=== PATIENT | female | born 1975 | race Native Hawaiian/Other Pacific Islander ===

== ENCOUNTER 2017-02-26 12:48 | Outpatient (CLI) | payer OTHER ==
[2017-02-26 14:15] LABS: TOTAL T3 0.92 ng/mL (0.87-1.78)
[2017-02-26 14:28] LABS: THYROID STIMULATING HORMONE 2.07 uIU/mL (0.34-5.60)
== END 2017-02-26 12:49 | disposition home or self-care (01) ==
LOC: LAB 12:48
PROVIDERS: ATTEND Specialist
DX: E06.9 Thyroiditis, unspecified (principal)
CPT/HCPCS: 84443; 84480; 84481

== ENCOUNTER 2017-05-11 17:20 | Emergency (ER) | payer OTHER ==
[2017-05-11] MEDS ORDERED: IBUPROFEN 800 MG TABLET PO STA (17:36)
--- NOTE | 2017-05-11 17:40 | ED Physician Documentation ---
PD HPI UPPER EXT INJURY - Stated complaint Stated Complaint: LT ARM PX - Chief complaint Chief Complaint: Ext Problem - History obtained from History obtained from: Patient - History of Present Illness Location: Other (She had a flu shot in the left deltoid a couple of weeks ago. Over the last couple of days she has had pain over the left bicep and tricep which is worse if she moves or lifts her arm. It is not worse with neck rotation and there is no associated weakness or numbness in the arm. There is no chest pain or trouble breathing. 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 - Present Medications Home Medications: Ambulatory Orders Medication Instructions Recorded Confirmed Aspirin 81 mg PO DAILY 05/11/17 05/11/17 - Allergies Allergies/Adverse Reactions: Allergies Allergy/AdvReac Type Severity Reaction Status Date / Time tramadol Allergy Hallucinati Verified 05/11/17 17:40 ons - Social History Does the pt smoke?: No Smoking Status: Never smoker Does the pt drink ETOH?: No Does the pt have substance abuse?: No - Immunizations Immunizations are current?: Yes - POLST Patient has POLST: No PD ED PE NORMAL - Vitals Vital signs reviewed: Yes - General General: Alert and oriented X 3, No acute distress - HEENT HEENT: PERRL, EOMI - Neck Neck: Supple, no meningeal sign, No bony TTP - Cardiac Cardiac: RRR, No murmur - Respiratory Respiratory: No respiratory distress, Clear bilaterally - Extremities Extremities: Other (Tender over the left bicep and tricep and difficulty with abduction of the arm due to pain. There is no skin changes or edema. 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.) - Neuro Neuro: Alert and oriented X 3, Normal speech Results - Vitals Vitals: Vital Signs - 24 hr 05/11/17 17:26 Temperature 36.3 C L Heart Rate 75 Respiratory 16 Rate Blood Pressure 133/71 H O2 Saturation 100 Oxygen O2 Source Room air - EKG (time done) 1729 Rate: Rate (enter#) (75) Rhythm: NSR [place]: Normal Intervals: Normal ME QRS: Normal Ischemia: Normal ST segments Computer interpretation: Agree with computer - Labs Labs: Laboratory Tests 05/11/17 05/11/17 05/11/17 18:02 18:02 18:03 WBC 6.6 RBC 4.93 Hgb 14.1 Hct 41.5 MCV 84.2 MCH 28.5 MCHC 33.9 RDW 14.0 Plt Count 208 MPV 7.7 L Neut # 4.0 Lymph # 1.9 [place] # 0.5 Eos # 0.1 Baso # 0.1 Absolute Nucleated RBC 0.00 Nucleated RBC % 0.0 Sodium 137 Potassium 3.6 Chloride 104 Carbon Dioxide 24 Anion Gap 9.0 BUN 14 Creatinine 0.8 Estimated GFR (MDRD) 78 L Glucose 87 Calcium 9.4 Total Bilirubin 0.4 AST 19 ALT 25 Alkaline Phosphatase 56 Total Protein 7.2 Albumin 4.2 Globulin 3.0 Albumin/Globulin Ratio 1.4 Lipase 34 Urine Color YELLOW Urine Clarity SL. CLOUDY Urine pH 6.0 Ur Specific [place] <=1.005 Urine Protein NEGATIVE Urine Glucose (UA) NEGATIVE Urine Ketones NEGATIVE Urine Occult Blood TRACE-LYSE Urine Nitrite NEGATIVE Urine Bilirubin NEGATIVE Urine Urobilinogen 0.2 (NORMAL) Ur Leukocyte Esterase TRACE H Urine RBC 0-5 Urine WBC 0-3 Ur Squamous Epith Cells MANY Squamous H Urine Bacteria Rare Ur Microscopic Review INDICATED Urine Culture Comments NOT INDICATED Urine HCG, Qual NEGATIVE - Rads (name of study) FLOR sanchez Radiology: Prelim report reviewed (no DVT) PD MEDICAL DECISION MAKING - ED course ED course: 41-year-old woman with pain of the left upper arm which seems muscular on examination, however that Bonnie does have a history of unprovoked DVT so an ultrasound was done without evidence of same. This could be related to a flu shot which she had a couple of weeks ago. She did not get much relief from ibuprofen here and was administered a Vicodin prepack. Departure - Departure Disposition: 01 Home, Self Care Clinical Impression: Pain in extremity Qualifiers: Extremity pain location: upper extremity Laterality: left Qualified Code(s): M79.602 - Pain in left arm Condition: Good Record reviewed to determine appropriate education?: Yes Instructions: ED Acute Pain UKO Comments: Return if worse or if new symptoms develop. Otherwise follow-up with your doctor for recheck. Your blood pressure was elevated today on check into the emergency department. This does not mean that you have hypertension, it is a common phenomenon to come to the emergency department and have elevated blood pressure. I recommend that you see your primary care physician within the week to have it rechecked when you are feeling better.
[2017-05-11] MEDS ORDERED: IBUPROFEN 800 MG TABLET PO ONE (17:58)
[2017-05-11 18:08] LABS: BASOPHILS # (AUTO) 0.1 10^3/uL (0.0-0.1); EOSINOPHILS # (AUTO) 0.1 10^3/uL (0.0-0.7); EOSINOPHILS % (AUTO) 1.5 %; HCT - HEMATOCRIT 41.5 % (37.0-47.0); HGB - HEMOGLOBIN 14.1 g/dL (12.0-16.0); LYMPHOCYTES # (AUTO) 1.9 10^3/uL (1.5-3.5); LYMPHOCYTES % (AUTO) 29.3 %; MEAN CORPUSCULAR HEMOGLOBIN 28.5 pg (27.0-31.0); MEAN CORPUSCULAR HGB CONC 33.9 g/dL (32.0-36.0); MEAN CORPUSCULAR VOLUME 84.2 fL (81.0-99.0); MEAN PLATELET VOLUME 7.7 fL (7.9-10.8); MONOCYTES # (AUTO) 0.5 10^3/uL (0.0-1.0); MONOCYTES % (AUTO) 8.2 %; RED BLOOD COUNT 4.93 10^6/uL (4.20-5.40); UNCORRECTED WHITE BLOOD COUNT 6.6 x10^3/uL; WHITE BLOOD COUNT 6.6 x10^3/uL (4.8-10.8)
[2017-05-11 18:14] LABS: BILIRUBIN,URINE NEGATIVE (NEGATIVE)
[2017-05-11 18:16] LABS: HCG UR QUAL NEGATIVE; UA w/ MICROSCOPIC CHARGE YES
[2017-05-11 18:21] LABS: ALBUMIN/GLOBULIN RATIO 1.4 (1.0-2.2); BILIRUBIN,TOTAL 0.4 mg/dL (0.2-1.0); CALCIUM 9.4 mg/dL (8.5-10.3); CREATININE 0.8 mg/dL (0.4-1.0); POTASSIUM 3.6 mmol/L (3.5-5.0); TOTAL PROTEIN 7.2 g/dL (6.7-8.2)
[2017-05-11 18:28] LABS: UR CULTURE IF IND NOT INDICATED; WBC,URINE 0-3 /HPF (0-5)
[2017-05-11] MEDS ORDERED: HYDROcod/ACET 5/325 Prepack 6 PO STA (19:33)
[2017-05-11] MEDS ORDERED: HYDROcod/ACETAM 5/325 MG TABLET ONE (19:41)
[2017-05-11 19:43] VITALS: BP 130/72
--- NOTE | 2017-05-11 19:51 | Ultrasound Preliminary Report ---
Exam: US DUPLEX EXT VEINS LEFT IMPRESSION: No evidence for deep venous thrombosis. [facility] SITE ID: [id number]
--- NOTE | 2017-05-11 19:53 | Ultrasound Report ---
EXAM: LEFT LOWER EXTREMITY VENOUS ULTRASOUND EXAM DATE: 05/11/2017 07:31 PM. CLINICAL HISTORY: Left arm pain. COMPARISON: None. TECHNIQUE: Real-time sonographic vascular imaging was performed by the braille transcriber through the lower extremity utilizing both color-flow and Doppler spectral analysis. Multiple shipping services sales representative static evie ges were saved for review. FINDINGS: Common Femoral Vein (CFV): Normal. CFV-GSV Junction: Normal. Profunda Femoral Vein (PFV): Normal. Femoral Vein (FV) Prox: Normal. Femoral Vein (FV) Mid: Normal. Femoral Vein (FV) Dist: Normal. Popliteal Vein: Normal. Posterior Tibial Veins: Normal. Peroneal Veins: Normal. Contralateral Side CFV: Normal. Other: None. IMPRESSION: No evidence for deep venous thrombosis. [facility] Referring Provider Line: [phone] SITE ID: [id number]
== END 2017-05-11 19:43 | disposition home or self-care (01) ==
LOC: ED 17:20
DX: M79.622 Pain in left upper arm (principal); R03.0 Elevated blood-pressure reading, without diagnosis of hypertension; Z86.718 Personal history of other venous thrombosis and embolism; Z79.82 Long term (current) use of aspirin
CPT/HCPCS: 36415; 80053; 81001; 81025; 83690; 85025; 93005; 93971; 99283; 99284; A9270; 81003; 87086

== ENCOUNTER 2017-07-25 17:57 | Emergency (ER) | payer OTHER ==
[2017-07-25 18:38] LABS: BASOPHILS # (AUTO) 0.1 10^3/uL (0.0-0.1); BASOPHILS % (AUTO) 0.8 %; EOSINOPHILS # (AUTO) 0.1 10^3/uL (0.0-0.7); EOSINOPHILS % (AUTO) 1.7 %; HGB - HEMOGLOBIN 14.2 g/dL (12.0-16.0); LYMPHOCYTES # (AUTO) 1.7 10^3/uL (1.5-3.5); LYMPHOCYTES % (AUTO) 25.1 %; MEAN CORPUSCULAR HEMOGLOBIN 28.4 pg (27.0-31.0); MEAN CORPUSCULAR HGB CONC 33.3 g/dL (32.0-36.0); MEAN CORPUSCULAR VOLUME 85.2 fL (81.0-99.0); MEAN PLATELET VOLUME 8.2 fL (7.9-10.8); MONOCYTES # (AUTO) 0.5 10^3/uL (0.0-1.0); MONOCYTES % (AUTO) 7.2 %; NEUTROPHILS # (AUTO) 4.5 10^3/uL (1.5-6.6); NEUTROPHILS % (AUTO) 65.2 %; PLT - PLATELET COUNT 198 10^3/uL (130-450); RED BLOOD COUNT 4.98 10^6/uL (4.20-5.40); RED CELL DISTRIBUTION WIDTH 13.5 % (12.0-15.0)
[2017-07-25 18:51] LABS: ALBUMIN 4.7 g/dL (3.2-5.5); ALBUMIN/GLOBULIN RATIO 1.8 (1.0-2.2); BILIRUBIN,TOTAL 0.4 mg/dL (0.2-1.0); TOTAL PROTEIN 7.3 g/dL (6.7-8.2)
[2017-07-25 19:20] LABS: BILIRUBIN,URINE NEGATIVE (NEGATIVE); GLUCOSE, URINE (UA) NEGATIVE (NEGATIVE); KETONES,URINE (UA) NEGATIVE (NEGATIVE); LEUKOCYTE ESTERASE, URINE NEGATIVE (NEGATIVE); NITRITE,URINE NEGATIVE (NEGATIVE); OCCULT BLOOD,URINE TRACE-INTA (NEGATIVE); PROTEIN,URINE NEGATIVE (NEGATIVE); UROBILINOGEN,URINE 0.2 (NORMAL) E.U./dL (NORMAL)
[2017-07-25 20:00] LABS: CLARITY,URINE CLEAR (CLEAR); HCG UR QUAL NEGATIVE
[2017-07-25] MEDS ORDERED: IOPAMIDOL-300 100 ML VIAL ONE (21:04)
[2017-07-25] MEDS ORDERED: IOPAMIDOL-300 100 ML VIAL IVP ONE (21:14)
--- NOTE | 2017-07-25 21:46 | ED Physician Documentation ---
PD HPI ABD PAIN - Stated complaint Stated Complaint: ABD PX - Chief complaint Chief Complaint: Abd Pain - History obtained from History obtained from: Patient, Family - History of Present Illness Timing - onset: Yesterday Timing - details: Gradual onset, Still present Quality: Cramping, Aching, Fullness/distended Location: All over / everywhere, Epigastric Associated symptoms: Nausea. No: Fever, Vomiting, Diarrhea, Constipation Similar symptoms before: Work up / diagnostics, Treatment Recently seen: Not recently seen - Additional information Additional information: Patient is a 41 year old female presenting to the emergency department for abdominal pain and distention. patient states that the symptoms have been going on the last few days. patient reports that she had something like this once in the past and she had upper and lower endoscopies and was found to have a polyp but was never able to follow up. Review of Systems Constitutional: denies: Fever, Chills Eyes: reports: Reviewed and negative Ears: reports: Reviewed and negative Nose: reports: Reviewed and negative Throat: reports: Reviewed and negative Cardiac: denies: Chest pain / pressure, Palpitations Respiratory: denies: Cough, Wheezing GI: reports: Abdominal Pain, Abdominal Swelling, Nausea, Constipation. 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 - Present Medications Home Medications: Ambulatory Orders Medication Instructions Recorded Confirmed Aspirin 81 mg PO DAILY 05/11/17 07/25/17 Omeprazole [PriLOSEC] 20 mg PO DAILY #30 capsule 07/25/17 - Allergies Allergies/Adverse Reactions: Allergies Allergy/AdvReac Type Severity Reaction Status Date / Time tramadol Allergy Hallucinati Verified 07/25/17 18:01 ons - Social History Does the pt smoke?: No Smoking Status: Never smoker Does the pt drink ETOH?: No Does the pt have substance abuse?: No - Immunizations Immunizations are current?: Yes - POLST Patient has POLST: No PD ED PE NORMAL - Vitals Vital signs reviewed: Yes - General General: Alert and oriented X 3, No acute distress - HEENT HEENT: Atraumatic, PERRL - Neck Neck: Supple, no meningeal sign - Cardiac Cardiac: RRR, No murmur - Abdomen Abdomen: Soft - Derm Derm: Normal color, Warm and dry, No rash - Extremities Extremities: No deformity, Normal ROM s pain, No calf tenderness / cord - Neuro Neuro: Alert and oriented X 3, No motor deficit, No sensory deficit, Normal speech - Psych Psych: Normal mood PD ED PE EXPANDED - Abdomen Abdomen: Distended, Tender to palpation, Epigastric, Generalized/diffuse. No: Rebound, Guarding Results - Vitals Vitals: Vital Signs - 24 hr 07/25/17 07/25/17 17:59 21:58 Temperature 36.6 C Heart Rate 81 69 Respiratory 18 16 Rate Blood Pressure 144/93 H 126/84 H O2 Saturation 100 99 Oxygen O2 Source Room air - Labs Labs: Laboratory Tests 07/25/17 07/25/17 07/25/17 18:30 18:30 19:13 WBC 7.0 RBC 4.98 Hgb 14.2 Hct 42.5 MCV 85.2 MCH 28.4 MCHC 33.3 RDW 13.5 Plt Count 198 MPV 8.2 Neut # 4.5 Lymph # 1.7 [place] # 0.5 Eos # 0.1 Baso # 0.1 Absolute Nucleated RBC 0.00 Nucleated RBC % 0.0 Sodium 136 Potassium 3.8 Chloride 105 Carbon Dioxide 26 Anion Gap 5.0 L BUN 14 Creatinine 1.0 Estimated GFR (MDRD) 61 L Glucose 96 Calcium 9.0 Total Bilirubin 0.4 AST 22 ALT 34 Alkaline Phosphatase 50 Total Protein 7.3 Albumin 4.7 Globulin 2.6 Albumin/Globulin Ratio 1.8 Lipase 39 Urine Color YELLOW Urine Clarity CLEAR Urine pH 6.0 Ur Specific [place] <=1.005 Urine Protein NEGATIVE Urine Glucose (UA) NEGATIVE Urine Ketones NEGATIVE Urine Occult Blood TRACE-INTA Urine Nitrite NEGATIVE Urine Bilirubin NEGATIVE Urine Urobilinogen 0.2 (NORMAL) Ur Leukocyte Esterase NEGATIVE Ur Microscopic Review NOT INDICATED Urine Culture Comments NOT INDICATED Urine HCG, Qual NEGATIVE - Rads (name of study) ct abd pelvis Radiology: Final report received (diverticulosis without diverticulitis) PD MEDICAL DECISION MAKING - ED course Complexity details: reviewed old records, reviewed results, re-evaluated patient , considered differential, d/w patient, d/w family ED course: Patient was seen and examined at bedside. Labs were drawn and within normal limits. Due to the distention and patient's history imaging was ordered. When patient returned from imaging the results were reviewed. Patient had no acute abnormalities on imaging. patient was treated with omeprazole and maalox. Patient required no further work up and was stable for discharge with outpatient follow up. Departure - Departure Disposition: Home, Self Care Clinical Impression: Gastritis Condition: Good Instructions: ED Gastritis Follow-Up: Adalberto Blevins MD [Primary Care Provider] - Within 1 week Prescriptions: Omeprazole [PriLOSEC] 20 mg PO DAILY #30 capsule Comments: Your diagnostics today were within normal limits. You will be started on omeprazole daily and you can take maalox as needed for breakthrough pain. You should follow up with your doctor this week for re-evaluation if your symptoms don't improve. You may return to the emergency department at any time for new, worsening or uncontrollable symptoms.
--- NOTE | 2017-07-25 21:49 | CT Preliminary Report ---
Exam: CT ABDOMEN/PELVIS W/ IMPRESSION: 1. Mildly enlarged fatty liver. No mass. 2. Diverticulosis without inflammation. No obstruction. Normal appendix. [facility] SITE ID: [id number]
[2017-07-25 21:58] VITALS: BP 126/84
--- NOTE | 2017-07-25 22:03 | CT Report ---
EXAM: CT ABDOMEN AND PELVIS EXAM DATE: 07/25/2017 09:19 PM. CLINICAL HISTORY: Abdominal pain and distention. COMPARISONS: 01/04/2016. TECHNIQUE: Routine helical CT imaging was performed through the abdomen and pelvis. IV contrast: Isov ue 300 100 mL. Enteric contrast: No. Reconstructions: Coronal and sagittal. In accordance with CT protocol optimization, one or more of the following dose reduction techniques w ere utilized for this exam: automated exposure control, adjustment of mA and/or KV based on patient s ize, or use of iterative reconstructive technique. FINDINGS: Lung Bases: Unremarkable. Liver: Fatty liver without mass. Mild liver enlargement. Gallbladder/Bile Ducts: Unremarkable. Spleen: Normal. Pancreas: Normal. Adrenal Glands: Normal. Kidneys: Normal. No masses or hydronephrosis. Peritoneal Cavity/Bowel: Small amount of pelvic free fluid noted. No free air or adenopathy. No jose alberto s or acute inflammatory process. The appendix is well visualized and normal. There are multiple diver ticula seen which most severely affect the sigmoid colon. No wall thickening or adjacent inflammatio n seen. No obstruction noted. Pelvic Organs: Tubal ligation clips are noted. The uterus, bladder and adnexa are otherwise unremarka ble. Small amount of free fluid in the pelvis noted. Vasculature: No aneurysms or other significant abnormality. Bones: No significant abnormality. Other: Small fat-containing umbilical hernia noted. IMPRESSION: 1. Mildly enlarged fatty liver. No mass. 2. Diverticulosis without inflammation. No obstruction. Normal appendix. [facility] Referring Provider Line: [phone] SITE ID: [id number]
[2017-07-25] MEDS ORDERED: MAG HYDROX/AL HYDROX/SIMETH 30 ML UDC PO STA (22:29)
== END 2017-07-25 22:46 | disposition home or self-care (01) ==
LOC: ED 17:57
DX: K29.70 Gastritis, unspecified, without bleeding (principal); Z86.718 Personal history of other venous thrombosis and embolism; Z79.82 Long term (current) use of aspirin
CPT/HCPCS: 36415; 74177; 80053; 81003; 81025; 83690; 85025; 99283; A9270; Q9967; 81001; 87086

== ENCOUNTER 2017-10-27 15:59 | Emergency (ER) | payer OTHER ==
--- NOTE | 2017-10-27 16:35 | ED Physician Documentation ---
PD HPI HEENT - Stated complaint Stated Complaint: OFF BALANCE - Chief complaint Chief Complaint: Neuro - History obtained from History obtained from: Patient - History of Present Illness Timing - onset: How many days ago (3) Timing - duration: Days (3) Timing - details: Gradual onset, Still present Location: Other (feeling some lightheaded or off balance feeling with standing up or with head movement.) Worsens: Position (turning head) Associated symptoms: No: Fever, Congestion, Swollen nodes, Facial swelling Similar symptoms before: Diagnosis (has had vertiog with spinning in the past. This is not that bad. Has had lightheadedness with anemia in the past as well.) Recently seen: Not recently seen Review of Systems Constitutional: denies: Fever, Chills, Myalgias Ears: reports: Loss of hearing. 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 - Present Medications Home Medications: Ambulatory Orders Medication Instructions Recorded Confirmed Aspirin 81 mg PO DAILY 05/11/17 10/27/17 Omeprazole [PriLOSEC] 20 mg PO DAILY #30 capsule 07/25/17 10/27/17 Butalb/Acetaminophen/Caffeine 10/27/17 [Fioricet 50-300-40 mg Capsule] Dexamethasone [Decadron] 4 mg PO DAILY #5 tablet 10/27/17 Meclizine [Antivert] 10/27/17 Sulfamethox/Trimeth 800/160 1 each PO BID #14 tablet 10/27/17 [Bactrim Ds 800/160] - Allergies Allergies/Adverse Reactions: Allergies Allergy/AdvReac Type Severity Reaction Status Date / Time tramadol Allergy Hallucinati Verified 07/25/17 18:01 ons - Social History Does the pt smoke?: No Smoking Status: Never smoker Does the pt drink ETOH?: No Does the pt have substance abuse?: No - Immunizations Immunizations are current?: Yes - POLST Patient has POLST: No PD ED PE NORMAL - Vitals Vital signs reviewed: Yes - General General: Alert and oriented X 3, No acute distress, Well developed/nourished - HEENT HEENT: PERRL, EOMI, Ears normal, Pharynx benign - Neck Neck: Supple, no meningeal sign, No adenopathy - Cardiac Cardiac: RRR, No murmur - Respiratory Respiratory: Clear bilaterally - Back Back: No CVA TTP - Derm Derm: Normal color, Warm and dry - Extremities Extremities: No tenderness to palpate, Normal ROM s pain, No edema, No calf tenderness / cord - Neuro Neuro: Alert and oriented X 3, classification officer 2-12 intact, No motor deficit, No sensory deficit, Normal speech, Other Eye Opening: Spontaneous Motor: Obeys Commands Verbal: Oriented GCS Score: 15 - Psych Psych: Normal mood, Normal affect Results - Vitals Vitals: Vital Signs - 24 hr 10/27/17 10/27/17 16:02 19:07 Temperature 36.0 C L 36.2 C L Heart Rate 80 72 Respiratory 16 16 Rate Blood Pressure 135/85 H 135/94 H O2 Saturation 100 99 Oxygen O2 Source Room air - Labs Labs: Laboratory Tests 10/27/17 10/27/17 10/27/17 16:05 17:11 17:11 WBC 6.1 RBC 4.98 Hgb 14.3 Hct 42.6 MCV 85.4 MCH 28.7 MCHC 33.6 RDW 13.4 Plt Count 165 MPV 8.2 Neut # 4.1 Lymph # 1.4 L [place] # 0.5 Eos # 0.1 Baso # 0.1 Absolute Nucleated RBC 0.00 Nucleated RBC % 0.0 Sodium 138 Potassium 3.6 Chloride 105 Carbon Dioxide 27 Anion Gap 6.0 BUN 11 Creatinine 0.8 Estimated GFR (MDRD) 78 L Glucose 90 Calcium 9.2 Magnesium 2.0 Total Bilirubin 0.5 AST 21 ALT 31 Alkaline Phosphatase 56 Total Protein 7.0 Albumin 4.3 Globulin 2.7 Albumin/Globulin Ratio 1.6 Lipase 27 TSH Urine Color RED/BLOODY Urine Clarity CLOUDY Urine pH 7.5 Ur Specific [place] 1.010 Urine Protein 100 H Urine Glucose (UA) NEGATIVE Urine Ketones NEGATIVE Urine Occult Blood LARGE H Urine Nitrite NEGATIVE Urine Bilirubin NEGATIVE Urine Urobilinogen 0.2 (NORMAL) Ur Leukocyte Esterase TRACE H Urine RBC TNTC H Urine WBC 11-25 H Ur Squamous Epith Cells RARE Squamous Urine Bacteria Few Ur Microscopic Review INDICATED Urine Culture Comments INDICATED Urine HCG, Qual NEGATIVE 10/27/17 17:11 WBC RBC Hgb Hct MCV MCH MCHC RDW Plt Count MPV Neut # Lymph # [place] # Eos # Baso # Absolute Nucleated RBC Nucleated RBC % Sodium Potassium Chloride Carbon Dioxide Anion Gap BUN Creatinine Estimated GFR (MDRD) Glucose Calcium Magnesium Total Bilirubin AST ALT Alkaline Phosphatase Total Protein Albumin Globulin Albumin/Globulin Ratio Lipase TSH 1.99 Urine Color Urine Clarity Urine pH Ur Specific [place] Urine Protein Urine Glucose (UA) Urine Ketones Urine Occult Blood Urine Nitrite Urine Bilirubin Urine Urobilinogen Ur Leukocyte Esterase Urine RBC Urine WBC Ur Squamous Epith Cells Urine Bacteria Ur Microscopic Review Urine Culture Comments Urine HCG, Qual PD MEDICAL DECISION MAKING - ED course Complexity details: considered differential (describes lightheaded but also some component of vertiog without actually spinning. No neuro deficits. I do not think it is central. ), d/w patient Departure - Departure Disposition: 01 Home, Self Care Clinical Impression: Light-headed feeling UTI (urinary tract infection) Qualifiers: Urinary tract infection type: acute cystitis Hematuria presence: with hematuria Qualified Code(s): N30.01 - Acute cystitis with hematuria Condition: Stable Record reviewed to determine appropriate education?: Yes Instructions: ED UTI Cystitis Female Follow-Up: Adalberto Blevins MD [Primary Care Provider] - Prescriptions: Dexamethasone [Decadron] 4 mg PO DAILY #5 tablet Sulfamethox/Trimeth 800/160 [Bactrim Ds 800/160] 1 each PO BID #14 tablet Comments: There is suggestion of a bladder infection on your urine test. Bactrim antibiotic for that. Your blood tests are looking okay. You might be feeling lightheaded related to a mild infection. Your symptoms may relate to a milder version of vertigo without the true spinning feeling. For that continue your meclizine 2-3 times a day and also add Decadron steroid anti-inflammatory for presumed inflammation of the inner ear. Recheck if not improved over the next few days. Forms: Activity restrictions Discharge Date/Time: 10/27/17 19:11
[2017-10-27 16:42] LABS: BILIRUBIN,URINE NEGATIVE (NEGATIVE); GLUCOSE, URINE (UA) NEGATIVE (NEGATIVE); KETONES,URINE (UA) NEGATIVE (NEGATIVE); LEUKOCYTE ESTERASE, URINE TRACE (NEGATIVE); NITRITE,URINE NEGATIVE (NEGATIVE); OCCULT BLOOD,URINE LARGE (NEGATIVE); PH,URINE 7.5 PH (5.0-7.5); PROTEIN,URINE 100 mg/dL (NEGATIVE); UROBILINOGEN,URINE 0.2 (NORMAL) E.U./dL (NORMAL)
[2017-10-27 16:46] LABS: CLARITY,URINE CLOUDY (CLEAR); HCG UR QUAL NEGATIVE
[2017-10-27 16:47] LABS: BACTERIA,URINE Few /HPF (None Seen); RBC,URINE TNTC /HPF (0-5); SQUAMOUS EPITHELIAL CELL,UR RARE Squamous (<= Few)
[2017-10-27 17:17] LABS: BASOPHILS # (AUTO) 0.1 10^3/uL (0.0-0.1); EOSINOPHILS # (AUTO) 0.1 10^3/uL (0.0-0.7); EOSINOPHILS % (AUTO) 1.2 %; HGB - HEMOGLOBIN 14.3 g/dL (12.0-16.0); LYMPHOCYTES # (AUTO) 1.4 10^3/uL (1.5-3.5); LYMPHOCYTES % (AUTO) 22.9 %; MEAN CORPUSCULAR HEMOGLOBIN 28.7 pg (27.0-31.0); MEAN CORPUSCULAR HGB CONC 33.6 g/dL (32.0-36.0); MEAN CORPUSCULAR VOLUME 85.4 fL (81.0-99.0); MEAN PLATELET VOLUME 8.2 fL (7.9-10.8); MONOCYTES # (AUTO) 0.5 10^3/uL (0.0-1.0); NEUTROPHILS # (AUTO) 4.1 10^3/uL (1.5-6.6); NEUTROPHILS % (AUTO) 66.9 %; PLT - PLATELET COUNT 165 10^3/uL (130-450); RED BLOOD COUNT 4.98 10^6/uL (4.20-5.40); RED CELL DISTRIBUTION WIDTH 13.4 % (12.0-15.0); WHITE BLOOD COUNT 6.1 x10^3/uL (4.8-10.8)
[2017-10-27 17:30] LABS: ALBUMIN 4.3 g/dL (3.2-5.5); ALBUMIN/GLOBULIN RATIO 1.6 (1.0-2.2); BILIRUBIN,TOTAL 0.5 mg/dL (0.2-1.0); CALCIUM 9.2 mg/dL (8.5-10.3); CREATININE 0.8 mg/dL (0.4-1.0)
[2017-10-27] MEDS ORDERED: SULFAMETH/TRIMETH DS 800/160 MG TABLET PO STA (18:20)
[2017-10-27] MEDS ORDERED: DEXAMETHASONE 10 MG/ML VIAL PO STA (18:20)
[2017-10-27 19:08] VITALS: BP 135/94
== END 2017-10-27 19:11 | disposition home or self-care (01) ==
LOC: ED 15:59
DX: R42 Dizziness and giddiness (principal); N30.01 Acute cystitis with hematuria; Z79.82 Long term (current) use of aspirin
CPT/HCPCS: 36415; 80053; 81001; 81025; 83690; 83735; 84443; 85025; 87086; 99283; A9270; 81003

== ENCOUNTER 2017-11-04 07:17 | Emergency (ER) | payer OTHER ==
[2017-11-04 07:31] VITALS: BP 124/77
[2017-11-04] MEDS ORDERED: MECLIZINE 12.5 MG TABLET PO STA (07:53)
--- NOTE | 2017-11-04 07:56 | ED Physician Documentation ---
History of Present Illness - Stated complaint Stated Complaint: DIZZY - Chief complaint Chief Complaint: General - History obtained from History obtained from: Patient - History of Present Illness Timing: How many weeks ago (2) Pain level max: 0 Pain level now: 0 Improved by: Remaining still Worsened by: Movement - Additonal information Additional information: Patient is a 41-year-old female who presents to the emergency department with feeling like the room is spinning for the past 2 weeks. This is intermittent and was worse this morning. She had been seen here 2 weeks ago and started on dexamethasone and Bactrim. She states she has not improved. She was taking meclizine, but it in 2016 so she is not sure if it is working correctly or not. She has had BPPV in the past. No fevers. No ear pain. No coughing. No vomiting. No dysuria. No possibility of . No focal weakness or numbness. No aphasia or dysarthria Review of Systems Ten Systems: 10 systems reviewed and negative Constitutional: denies: Fever, Chills Ears: denies: Ear pain Nose: denies: Rhinorrhea / runny nose, Congestion Throat: denies: Sore throat Cardiac: denies: Chest pain / pressure Respiratory: denies: Cough GI: denies: Nausea, Vomiting, Diarrhea Skin: denies: Rash Musculoskeletal: denies: Neck pain, Back pain Neurologic: denies: Focal weakness, Numbness, Confused, Altered mental status, Headache PD PAST MEDICAL HISTORY - Past Medical History Cardiovascular: Deep vein thrombosis Respiratory: Pneumonia GI: None - Past Surgical History 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 - Present Medications Home Medications: Ambulatory Orders Medication Instructions Recorded Confirmed Aspirin 81 mg PO DAILY 05/11/17 10/27/17 Omeprazole [PriLOSEC] 20 mg PO DAILY #30 capsule 07/25/17 10/27/17 Butalb/Acetaminophen/Caffeine 10/27/17 [Fioricet 50-300-40 mg Capsule] Meclizine [Antivert] 10/27/17 Sulfamethox/Trimeth 800/160 1 each PO BID #14 tablet 10/27/17 [Bactrim Ds 800/160] Meclizine [Antivert] 25 mg PO Q6H PRN #30 tablet 11/04/17 - Allergies Allergies/Adverse Reactions: Allergies Allergy/AdvReac Type Severity Reaction Status Date / Time tramadol Allergy Hallucinati Verified 11/04/17 07:31 ons - Social History Does the pt smoke?: No Smoking Status: Never smoker Does the pt drink ETOH?: No Does the pt have substance abuse?: No - Immunizations Immunizations are current?: Yes - POLST Patient has POLST: No PD ED PE NORMAL - Vitals Vital signs reviewed: Yes - General General: Alert and oriented X 3, No acute distress, Well developed/nourished - HEENT HEENT: Atraumatic, PERRL, EOMI, Moist mucous membranes, Pharynx benign, Other ( Mild erythema to the superior portion of the left tympanic membrane. 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 Horizontal nystagmus present.) - Psych Psych: Normal mood, Normal affect Results - Vitals Vitals: Vital Signs - 24 hr 11/04/17 07:26 Temperature 36.5 C Heart Rate 85 Respiratory 16 Rate Blood Pressure 124/77 O2 Saturation 100 Oxygen O2 Source Room air PD MEDICAL DECISION MAKING - ED course Complexity details: reviewed old records, considered differential, d/w patient ED course: Patient is a 41-year-old female who presents to the emergency department what appears to be benign paroxysmal positional vertigo. She was put through the half somersault maneuver 2 in the emergency department and feels better. Also given meclizine. Will prescribe meclizine for home and have her continue the reposition all movements at home. No evidence of stroke, mass, ICH. Patient counseled regarding signs and symptoms for which I believe and urgent re- evaluation would be necessary. Patient with good understanding of and agreement to plan and is comfortable going home at this time This document was made in part using voice recognition software. While efforts are made to proofread this document, sound alike and grammatical errors may occur. Departure - Departure Disposition: 01 Home, Self Care Clinical Impression: BPPV (benign paroxysmal positional vertigo) Qualifiers: Laterality: right Qualified Code(s): H81.11 - Benign paroxysmal vertigo, right ear Condition: Good Instructions: Vertigo Paroxysmal Positional Follow-Up: Adalberto Blevins MD [Primary Care Provider] - Within 1 week Prescriptions: Meclizine [Antivert] 25 mg PO Q6H PRN #30 tablet PRN Reason: Vertigo Comments: Take the meclizine as directed. You can also try the Ari maneuver and half somersault maneuvers at home for your vertigo. There are [employer] videos on how to perform these. Your right ear is the one affected. Return if you worsen. Discharge Date/Time: 11/04/17 08:30
== END 2017-11-04 08:30 | disposition home or self-care (01) ==
LOC: ED 07:17
DX: H81.11 Benign paroxysmal vertigo, right ear (principal); Z86.718 Personal history of other venous thrombosis and embolism; Z79.82 Long term (current) use of aspirin
CPT/HCPCS: 99283; A9270

== ENCOUNTER 2018-02-07 08:00 | Outpatient (CLI) | payer OTHER ==
[2018-02-07 15:42] LABS: BILIRUBIN,URINE NEGATIVE (NEGATIVE); GLUCOSE, URINE (UA) NEGATIVE (NEGATIVE); KETONES,URINE (UA) 15 mg/dL (NEGATIVE); LEUKOCYTE ESTERASE, URINE NEGATIVE (NEGATIVE); NITRITE,URINE NEGATIVE (NEGATIVE); OCCULT BLOOD,URINE TRACE-INTA (NEGATIVE); PROTEIN,URINE NEGATIVE (NEGATIVE); UROBILINOGEN,URINE 0.2 (NORMAL) E.U./dL (NORMAL)
[2018-02-07 15:44] LABS: CLARITY,URINE CLEAR (CLEAR)
[2018-02-07 16:02] LABS: BACTERIA,URINE Many /HPF (None Seen); SQUAMOUS EPITHELIAL CELL,UR MOD Squamous (<= Few); WBC CLUMPS,URINE PRESENT
== END 2018-02-07 08:01 | disposition home or self-care (01) ==
LOC: LAB.R 08:00
PROVIDERS: ATTEND Obstetrics & Gynecology
DX: N39.3 Stress incontinence (female) (male) (principal)
CPT/HCPCS: 81001; 87086

== ENCOUNTER 2018-02-10 08:00 | Outpatient (CLI) | payer OTHER ==
[2018-02-10 12:27] LABS: BASOPHILS % (AUTO) 0.6 %; EOSINOPHILS # (AUTO) 0.1 10^3/uL (0.0-0.7); EOSINOPHILS % (AUTO) 1.1 %; HGB - HEMOGLOBIN 13.5 g/dL (12.0-16.0); LYMPHOCYTES # (AUTO) 0.9 10^3/uL (1.5-3.5); LYMPHOCYTES % (AUTO) 18.5 %; MEAN CORPUSCULAR HEMOGLOBIN 29.7 pg (27.0-31.0); MEAN CORPUSCULAR HGB CONC 34.8 g/dL (32.0-36.0); MEAN CORPUSCULAR VOLUME 85.3 fL (81.0-99.0); MEAN PLATELET VOLUME 9.1 fL (7.9-10.8); MONOCYTES # (AUTO) 0.3 10^3/uL (0.0-1.0); MONOCYTES % (AUTO) 6.2 %; NEUTROPHILS # (AUTO) 3.5 10^3/uL (1.5-6.6); NEUTROPHILS % (AUTO) 73.6 %; PLT - PLATELET COUNT 195 10^3/uL (130-450); RED BLOOD COUNT 4.53 10^6/uL (4.20-5.40); RED CELL DISTRIBUTION WIDTH 13.4 % (12.0-15.0); WHITE BLOOD COUNT 4.7 x10^3/uL (4.8-10.8)
[2018-02-10 12:36] LABS: CHOLESTEROL 209 mg/dL; HDL CHOLESTEROL 35 mg/dL; LDL CHOLESTEROL,CALCULATED 160 mg/dL; LDL/HDL RATIO 4.6 (<4.4); VLDL CHOLESTEROL 14 mg/dL
[2018-02-10 12:53] LABS: THYROID STIMULATING HORMONE 2.08 uIU/mL (0.34-5.60)
[2018-02-10 12:55] LABS: FREE T4 (FREE THYROXINE) 0.93 ng/dL (0.58-1.64)
[2018-02-10 13:20] LABS: FOLLICLE STIMULATING HORMONE 16.63 mIU/mL
== END 2018-02-10 08:01 | disposition home or self-care (01) ==
LOC: LAB.N 08:00
PROVIDERS: ATTEND Obstetrics & Gynecology
DX: N92.5 Other specified irregular menstruation (principal); Z13.0 Encounter for screening for diseases of the blood and blood-forming organs and certain disorders involving the immune mechanism; Z13.220 Encounter for screening for lipoid disorders
CPT/HCPCS: 36415; 80061; 83001; 83721; 84439; 84443; 84481; 85025

== ENCOUNTER 2018-02-17 09:00 | Outpatient (CLI) | payer OTHER ==
--- NOTE | 2018-02-17 11:13 | Ultrasound Report ---
Reason: IRREGULAR MENSTRUATION Procedure Date: 02/17/2018 Accession Number: [id number] / [id number] Procedure: US - Pelvic w/Transvaginal CPT Code: FULL RESULT: EXAM: PELVIC ULTRASOUND EXAM DATE: 02/17/2018 10:29 AM. CLINICAL HISTORY: Irregular menstruation. COMPARISON: None. TECHNIQUE: Realtime transabdominal pelvic scan performed to identify the uterus and adnexa and as an overview of other pelvic structures, followed by transvaginal scan to provide greater detail of the uterus and adnexa, with static image documentation. FINDINGS: Uterus: 12.7 x 3.7 x 7.8 cm, volume 192 cc. Anteverted position. Normal overall size and echotexture. Masses: None. Endometrium: 9 mm. Normal. Cervix: Nabothian cysts are noted. Right Ovary: 2.6 x 2.5 x 1.8 cm, volume 6 cc. Normal echotexture and blood flow. Left Ovary: 4.8 x 3.9 x 3.9 cm, volume 38 cc. Hemorrhagic dominant follicle measuring up to 2.7 cm is noted. Free Fluid: None. Other: None. IMPRESSION: Hemorrhagic dominant follicle, otherwise normal study. RADIA
== END 2018-02-17 09:01 | disposition home or self-care (01) ==
LOC: DI 09:00
PROVIDERS: ATTEND Obstetrics & Gynecology
DX: N83.02 Follicular cyst of left ovary (principal)
CPT/HCPCS: 76830; 76856

== ENCOUNTER 2018-04-07 12:41 | Outpatient (CLI) | payer OTHER ==
[2018-04-07 12:58] LABS: BASOPHILS % (AUTO) 0.6 %; EOSINOPHILS # (AUTO) 0.1 10^3/uL (0.0-0.7); EOSINOPHILS % (AUTO) 0.9 %; HGB - HEMOGLOBIN 13.6 g/dL (12.0-16.0); LYMPHOCYTES # (AUTO) 1.6 10^3/uL (1.5-3.5); LYMPHOCYTES % (AUTO) 20.4 %; MEAN CORPUSCULAR HEMOGLOBIN 29.4 pg (27.0-31.0); MEAN CORPUSCULAR HGB CONC 34.4 g/dL (32.0-36.0); MEAN CORPUSCULAR VOLUME 85.5 fL (81.0-99.0); MEAN PLATELET VOLUME 8.3 fL (7.9-10.8); MONOCYTES # (AUTO) 0.5 10^3/uL (0.0-1.0); MONOCYTES % (AUTO) 5.9 %; NEUTROPHILS # (AUTO) 5.7 10^3/uL (1.5-6.6); NEUTROPHILS % (AUTO) 72.2 %; PLT - PLATELET COUNT 225 10^3/uL (130-450); RED BLOOD COUNT 4.62 10^6/uL (4.20-5.40); RED CELL DISTRIBUTION WIDTH 13.8 % (12.0-15.0); WHITE BLOOD COUNT 7.9 x10^3/uL (4.8-10.8)
== END 2018-04-07 12:42 | disposition home or self-care (01) ==
LOC: LAB 12:41
PROVIDERS: ATTEND Obstetrics & Gynecology
DX: N92.4 Excessive bleeding in the premenopausal period (principal)
CPT/HCPCS: 36415; 85025

== ENCOUNTER 2018-04-16 08:20 | Inpatient (IN) | payer OTHER ==
[2018-04-16 09:12] LABS: BILIRUBIN,URINE NEGATIVE (NEGATIVE); GLUCOSE, URINE (UA) NEGATIVE (NEGATIVE); OCCULT BLOOD,URINE LARGE (NEGATIVE)
[2018-04-16 09:17] LABS: CLARITY,URINE BLOODY (CLEAR)
[2018-04-16 09:18] LABS: RBC,URINE TNTC /HPF (0-5); SQUAMOUS EPITHELIAL CELL,UR MOD Squamous (<= Few)
[2018-04-16 09:19] LABS: BACTERIA,URINE Few /HPF (None Seen)
[2018-04-16 09:38] LABS: BASOPHILS % (AUTO) 0.9 %; EOSINOPHILS % (AUTO) 1.4 %; HGB - HEMOGLOBIN 9.8 g/dL (12.0-16.0); LYMPHOCYTES # (AUTO) 0.9 10^3/uL (1.5-3.5); LYMPHOCYTES % (AUTO) 24.6 %; MEAN CORPUSCULAR HEMOGLOBIN 29.7 pg (27.0-31.0); MEAN CORPUSCULAR HGB CONC 34.3 g/dL (32.0-36.0); MEAN CORPUSCULAR VOLUME 86.5 fL (81.0-99.0); MEAN PLATELET VOLUME 7.8 fL (7.9-10.8); MONOCYTES # (AUTO) 0.2 10^3/uL (0.0-1.0); MONOCYTES % (AUTO) 5.7 %; NEUTROPHILS # (AUTO) 2.4 10^3/uL (1.5-6.6); NEUTROPHILS % (AUTO) 67.4 %; PLT - PLATELET COUNT 188 10^3/uL (130-450); RED BLOOD COUNT 3.28 10^6/uL (4.20-5.40); RED CELL DISTRIBUTION WIDTH 14.2 % (12.0-15.0); WHITE BLOOD COUNT 3.5 x10^3/uL (4.8-10.8)
[2018-04-16 09:49] LABS: ALBUMIN 3.7 g/dL (3.2-5.5); ALBUMIN/GLOBULIN RATIO 1.5 (1.0-2.2); BILIRUBIN,TOTAL 0.7 mg/dL (0.2-1.0); CALCIUM 8.5 mg/dL (8.5-10.3); CREATININE 0.5 mg/dL (0.4-1.0); TOTAL PROTEIN 6.1 g/dL (6.7-8.2)
--- NOTE | 2018-04-16 10:01 | ED Physician Documentation ---
PD HPI HEADACHE - Stated complaint Stated Complaint: KRAMER - Chief complaint Chief Complaint: Neuro - History obtained from History obtained from: Patient, Family - History of Present Illness Timing - onset: How many days ago (2) Timing - onset during: Rest Timing - duration: Days (2) Timing - details: Gradual onset, Still present Location: Global Quality: Throbbing Associated symptoms: No: Fever, Stiff neck, Nausea, Vomiting, Weakness, Numbness, Syncope, Seizure, Eye pain, Vision changes Improved by: Rest Contributing factors: No: Anticoagulated Similar symptoms before: Other Recently seen: Clinic - Additional information Additional information: 42-year-old female with a history of dysfunctional uterine bleeding and a diagnosis of adenomyosis is preparing to have a hysterectomy done next month. She is now developed a headache that is throbbing in nature and she is concerned about the blood loss that she has had. She feels that she may be anemic. She has had migraine headaches previously and she states this is not similar to that. She denies any photophobia or nausea or vomiting. Review of Systems Constitutional: reports: Fatigue. denies: Fever, Chills Eyes: denies: Decreased vision Ears: denies: Ear pain Nose: denies: Rhinorrhea / runny nose, Congestion Throat: denies: Sore throat Cardiac: denies: Chest pain / pressure Respiratory: denies: Cough GI: reports: Abdominal Pain, Nausea : reports: Vaginal bleeding. denies: Dysuria, Frequency Skin: denies: Rash Musculoskeletal: denies: Neck pain, Back pain, Extremity pain Neurologic: reports: Headache. 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 - Present Medications Home Medications: Ambulatory Orders Medication Instructions Recorded Confirmed Aspirin 81 mg PO DAILY 05/11/17 10/27/17 - Allergies Allergies/Adverse Reactions: Allergies Allergy/AdvReac Type Severity Reaction Status Date / Time tramadol Allergy Hallucinati Verified 11/04/17 07:31 ons - Social History Does the pt smoke?: No Smoking Status: Never smoker Does the pt drink ETOH?: No Does the pt have substance abuse?: No - Immunizations Immunizations are current?: Yes - POLST Patient has POLST: No PD ED PE NORMAL - Vitals Vital signs reviewed: Yes (normal ) - General General: Alert and oriented X 3, No acute distress, Well developed/nourished - HEENT HEENT: Atraumatic, PERRL, EOMI, Other (dry mucous membranes ) - Neck Neck: Supple, no meningeal sign, No bony TTP - Cardiac Cardiac: RRR, No murmur - Respiratory Respiratory: No respiratory distress, Clear bilaterally - Abdomen Abdomen: Soft, Non tender - Back Back: No CVA TTP, No spinal TTP - Derm Derm: Normal color, Warm and dry, No rash - Extremities Extremities: No deformity, No edema - Neuro Neuro: Alert and oriented X 3, 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, No motor deficit, No sensory deficit, Normal speech Eye Opening: Spontaneous Motor: Obeys Commands Verbal: Oriented GCS Score: 15 - Psych Psych: Normal mood, Normal affect Results - Vitals Vitals: Vital Signs - 24 hr 04/16/18 04/16/18 08:25 10:11 Temperature 36.8 C Heart Rate 87 83 Respiratory 14 12 Rate Blood Pressure 122/87 H 124/84 H O2 Saturation 100 99 Oxygen O2 Source Room air - Labs Labs: Laboratory Tests 04/16/18 04/16/18 04/16/18 08:45 09:30 09:30 WBC 3.5 L RBC 3.28 L Hgb 9.8 L Hct 28.4 L MCV 86.5 MCH 29.7 MCHC 34.3 RDW 14.2 Plt Count 188 MPV 7.8 L Neut # (Auto) 2.4 Lymph # (Auto) 0.9 L [place] # (Auto) 0.2 Eos # (Auto) 0.0 Baso # (Auto) 0.0 Absolute Nucleated RBC 0.00 Nucleated RBC % 0.0 Sodium 139 Potassium 3.7 Chloride 110 Carbon Dioxide 23 Anion Gap 6.0 BUN 13 Creatinine 0.5 Estimated GFR (MDRD) 134 Glucose 89 Calcium 8.5 Total Bilirubin 0.7 AST 21 ALT 25 Alkaline Phosphatase 37 L Troponin I Total Protein 6.1 L Albumin 3.7 Globulin 2.4 Albumin/Globulin Ratio 1.5 Lipase 33 Urine Color RED/BLOODY Urine Clarity BLOODY Urine pH Ur Specific [place] Urine Protein Urine Glucose (UA) NEGATIVE Urine Ketones Urine Occult Blood LARGE H Urine Nitrite Urine Bilirubin NEGATIVE Urine Urobilinogen Ur Leukocyte Esterase Urine RBC TNTC H Urine WBC 6-10 H Ur Squamous Epith Cells MOD Squamous H Urine Bacteria Few Ur Microscopic Review INDICATED Urine Culture Comments NOT INDICATED 04/16/18 04/16/18 09:30 10:22 WBC RBC Hgb Hct MCV MCH MCHC RDW Plt Count MPV Neut # (Auto) Lymph # (Auto) [place] # (Auto) Eos # (Auto) Baso # (Auto) Absolute Nucleated RBC Nucleated RBC % Sodium Potassium Chloride Carbon Dioxide Anion Gap BUN Creatinine Estimated GFR (MDRD) Glucose Calcium Total Bilirubin AST ALT Alkaline Phosphatase Troponin I < 0.04 Total Protein Albumin Globulin Albumin/Globulin Ratio Lipase Urine Color YELLOW Urine Clarity CLEAR Urine pH 7.5 Ur Specific [place] 1.015 Urine Protein NEGATIVE Urine Glucose (UA) NEGATIVE Urine Ketones NEGATIVE Urine Occult Blood NEGATIVE Urine Nitrite NEGATIVE Urine Bilirubin NEGATIVE Urine Urobilinogen 0.2 (NORMAL) Ur Leukocyte Esterase NEGATIVE Urine RBC Urine WBC Ur Squamous Epith Cells Urine Bacteria Ur Microscopic Review NOT INDICATED Urine Culture Comments NOT INDICATED PD MEDICAL DECISION MAKING - ED course Complexity details: reviewed old records, reviewed results, re-evaluated patient, considered differential, d/w patient ED course: 42-year-old female with persistent vaginal bleeding has now developed symptomatic anemia with a headache. She is trying to continue to go to work with these symptoms and she is no longer able to do this. She does have a scheduled hysterectomy for the of next month. She has dropped her hct about 9 points in the past week. Dr. Singletary is consulted in the case and will come to the ED to evaluate the patient. Departure - Departure Disposition: 66 [facility] DC/Xfer Clinical Impression: Symptomatic anemia, Dysfunctional uterine bleeding Condition: Stable
[2018-04-16 10:26] LABS: BILIRUBIN,URINE NEGATIVE (NEGATIVE); GLUCOSE, URINE (UA) NEGATIVE (NEGATIVE); KETONES,URINE (UA) NEGATIVE (NEGATIVE); LEUKOCYTE ESTERASE, URINE NEGATIVE (NEGATIVE); NITRITE,URINE NEGATIVE (NEGATIVE); OCCULT BLOOD,URINE NEGATIVE (NEGATIVE); PH,URINE 7.5 PH (5.0-7.5); PROTEIN,URINE NEGATIVE (NEGATIVE); UROBILINOGEN,URINE 0.2 (NORMAL) E.U./dL (NORMAL)
[2018-04-16 10:29] LABS: CLARITY,URINE CLEAR (CLEAR)
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
[2018-04-16] MEDS ORDERED: ZOLPIDEM 5 MG TABLET PO PRN (13:14)
[2018-04-16 14:52] LABS: BASOPHILS % (AUTO) 0.6 %; EOSINOPHILS # (AUTO) 0.1 10^3/uL (0.0-0.7); EOSINOPHILS % (AUTO) 1.3 %; LYMPHOCYTES # (AUTO) 0.8 10^3/uL (1.5-3.5); LYMPHOCYTES % (AUTO) 18.6 %; MEAN CORPUSCULAR HEMOGLOBIN 29.8 pg (27.0-31.0); MEAN CORPUSCULAR HGB CONC 34.5 g/dL (32.0-36.0); MEAN CORPUSCULAR VOLUME 86.1 fL (81.0-99.0); MEAN PLATELET VOLUME 8.1 fL (7.9-10.8); MONOCYTES # (AUTO) 0.2 10^3/uL (0.0-1.0); MONOCYTES % (AUTO) 5.6 %; NEUTROPHILS % (AUTO) 73.9 %; PLT - PLATELET COUNT 213 10^3/uL (130-450); RED BLOOD COUNT 3.35 10^6/uL (4.20-5.40); RED CELL DISTRIBUTION WIDTH 14.1 % (12.0-15.0); WHITE BLOOD COUNT 4.1 x10^3/uL (4.8-10.8)
[2018-04-16 16:18] LABS: HCG,QUALITATIVE BLOOD NEGATIVE
--- NOTE | 2018-04-16 16:25 | ANESTHESIA ---
Pre-Anesthesia VS, & Labs - Diagnosis Menorrhagia, anemia - Procedure Laparoscopic Assisted vaginal hysterectomy Vital Signs: Temp Pulse Resp BP Pulse Ox 37.0 C 84 18 124/72 100 04/16/18 14:19 04/16/18 14:19 04/16/18 14:19 04/16/18 14:19 04/16/18 14:19 Height 5 ft 5 in Weight (kg) 92 kg Body Mass Index 33.7 - NPO >8 hours - Is Patient ?: No - Lab Results Current Lab Results: Laboratory Tests 04/16/18 14:35: Blood Type B POSITIVE, Antibody Screen NEGATIVE 04/16/18 14:35: WBC 4.1 L, RBC 3.35 L, Hgb 10.0 L, Hct 28.8 L, MCV 86.1, MCH 29.8, MCHC 34.5, RDW 14.1, Plt Count 213, MPV 8.1, Neut # (Auto) 3.0, Lymph # (Auto) 0.8 L, [place] # (Auto) 0.2, Eos # (Auto) 0.1, Baso # (Auto) 0.0, Absolute Nucleated RBC 0.00, Nucleated RBC % 0.1 04/16/18 14:25: Serum HCG, Qual NEGATIVE 04/16/18 09:30: Blood Type Recheck B POSITIVE 04/16/18 09:30: Troponin I < 0.04 04/16/18 09:30: Sodium 139, Potassium 3.7, Chloride 110, Carbon Dioxide 23, Anion Gap 6.0, BUN 13, Creatinine 0.5, Estimated GFR (MDRD) 134, Glucose 89, Calcium 8.5, Total Bilirubin 0.7, AST 21, ALT 25, Alkaline Phosphatase 37 L, Total Protein 6.1 L, Albumin 3.7, Globulin 2.4, Albumin/Globulin Ratio 1.5, Lipase 33 04/16/18 09:30: WBC 3.5 L, RBC 3.28 L, Hgb 9.8 L, Hct 28.4 L, MCV 86.5, MCH 29.7, MCHC 34.3, RDW 14.2, Plt Count 188, MPV 7.8 L, Neut # (Auto) 2.4, Lymph # (Auto) 0.9 L, [place] # (Auto) 0.2, Eos # (Auto) 0.0, Baso # (Auto) 0.0, Absolute Nucleated RBC 0.00, Nucleated RBC % 0.0 Lab results reviewed: Yes Fish Bones: 04/16/18 14:35 04/16/18 09:30 Home Medications and Allergies Active Medications Acetaminophen (Tylenol) 650 mg PO Q4HR PRN PRN Reason: Pain 1 to 4 Acetaminophen (Tylenol) 1,000 mg PO Q8H KRZYSZTOF Celecoxib (Celebrex) 200 mg PO BID KRZYSZTOF Docusate Sodium (Colace 100mg Capsule) 100 mg PO BID KRZYSZTOF Hydromorphone HCl (Dilaudid Inj Syringe) 0.5 mg IVP Q2H PRN PRN Reason: Pain 8 to 10 Lactated Ringer's (Lr) 1,000 mls @ 100 mls/hr IV .Q10H KRZYSZTOF Ondansetron HCl (Zofran Inj) 4 mg IVP Q6HR PRN PRN Reason: Nausea / Vomiting Oxycodone HCl (Roxicodone) 5 mg PO Q4HR PRN PRN Reason: PAIN Pantoprazole Sodium (Protonix) 40 mg PO QDAC KRZYSZTOF Polyethylene Glycol (Miralax) 17 gm PO DAILY KRZYSZTOF Simethicone (Mylicon) 80 mg PO TID KRZYSZTOF Sodium Chloride (Normal Saline Flush 0.9%) 10 ml IVP PRN PRN PRN Reason: NEEDED PER PROVIDER ORDERS Sodium Chloride (Normal Saline Flush 0.9%) 10 ml IVP 0100,0900,1700 KRZYSZTOF Zolpidem Tartrate (Ambien) 5 mg PO QPM PRN PRN Reason: Insomnia Aspirin 81 mg PO DAILY 05/11/17 Allergies/Adverse Reactions: Allergies Allergy/AdvReac Type Severity Reaction Status Date / Time tramadol Allergy Hallucinati Verified 11/04/17 07:31 ons Anes History & Medical History - Anesthetic History Anesthesia Complications: reports: No previous complications Family history of Anesthesia Complications: Denies Family history of Malignant Hyperthermia: Denies - Medical History Cardiovascular: reports: Hypertension, Deep vein thrombosis Pulmonary: reports: None Gastrointestinal: reports: Hiatal hernia (Denies any reflux, improved with diet) Urinary: reports: None, Nocturia Neuro: reports: Headaches, Migraines Musculoskeletal: reports: None Endocrine/Autoimmune: reports: None Blood Disorders: reports: Anemia Skin: reports: None Smoking Status: Former smoker (Quit in her 20s) Psychosocial: reports: No issues indicated - Surgical History Gynecologic: Tubal ligation Exam General: Alert, Oriented x3, Cooperative, No acute distress Dental: WNL Mouth Openin Fingerbreadth Neck Mobility: Normal Mallampati classification: I Thyromental Distance: 4-6 cm Respiratory: Lungs clear, Normal breath sounds, No respiratory distress, No accessory muscle use Cardiovascular: Regular rate, Normal S1, Normal S2, No murmurs Mental/Cognitive Status: Alert/Oriented X3, Normal for patient Cognitive Status: Within normal limits Plan Anesthesia Type: General (Discussed need for possible blood transfusion.) Consent for Procedure(s) Verified and Reviewed: Yes Code Status: Attempt Resuscitation ASA classification: 2-Mild systemic disease Is this case an emergency?: Yes
--- NOTE | 2018-04-16 16:26 | OPERATIVE REPORT ---
Operative Report - General Admit Date: 04/16/18 Planned Procedure: LAVH Pre-Op Diagnosis: Menorrhagia with anemia; symptomatic anemia; continue bleeding, Procedure Performed: Laparoscopic assisted vaginal hysterectomy with bilateral salpingectomy; modified Schulz's procedure; cystoscopy Post Op Diagnosis: Await pathology, same as above - Procedure Note Primary Surgeon: Oskar Singletary MD, F ACOG, FICS Secondary Surgeon: Juan Lopez MD FACS Anesthesia Provider: Yogi Davalos, certified nurse superintendent [employer] Anesthesia Technique: General ET tube Pathology: Uterus and tubes sent to pathology. IV Fluids (mL): 1,400 Estimated Blood Loss (mL): 100 Urine Output (mL): 75 Drain/Tube Type: Other (Leslie catheter) Complications: None - Other Other Information/Narrative: Findings 1. The external genitalia and Bartholin's glands have no pathologic findings. The vagina is fairly well suspended with only Grade1 cystorectocele. The cervix appears to have a LEEP crater and a fissure at 1:00 without cervicitis or suspicious lesions. 2. The uterus was slightly enlarged and was approximately 6 weeks size. 3. The tubes had been ligated. The fimbriated to was normal-appearing. 4. The ovaries appear to be normal bilaterally. There was no cystic activity, tubal excrescences or abnormal vascularity present. As per the patient's wishes both ovaries were spared. 5. There were No significant adhesions 6. The bladder was inspected and found to have a normal appearance without inflammation, ulceration or suspect lesion. Both tubal orifices were open and passing clear urine. Description of surgery I met the patient and her daughter in the hspital room to discuss the procedure today. I reviewed the mechanics, risks, and benefits. The risks include bleeding, transfusion, infection, damage to intestines, damage to urinary tract, postoperative pain, and thromboembolic event. Because of a prior DVT patient will need Lovenox prophylactically in the postoperative period which may increase her possibility of postoperative bleeding. Her Galapini score is 5, which puts her at increased risk of thromboembolic event. Therefore in addition to sequential compression device and Lovenox 40 mg daily will be started 2 hours after the procedure. Reference up-to-date guidelines. I confirmed with her that she did not want her ovaries removed unless pathology was evident on examination. All questions were answered. Patient was placed on the operating table in the supine position. She was uneventfully induced and intubated. She was moved to the low dorsal lithotomy position on [facility]. She was prepped and draped in the customary sterile fashion. Timeout briefing was done per protocol. Leslie catheter and HUMI uterine manipulator were uneventfully placed. Small amount of Marcaine quarter percent was injected under the umbilical skin fold and a small incision placed. 5 mm Visiport trocar was uneventfully placed into the abdominal cavity under direct visualization. The abdominal cavity was then insufflated with CO2 gas at 12 mm. Under direct visualization right and left 5 mm Visiport operating ports were placed. The abdomen was assessed and photographed. The left tube was placed on tension medially and superiorly. The mesosalpinx was then desiccated and divided with LigaSure. The dissection was continued up to the gap in the uterosacral ligament from her prior tubal ligation. Next the uterus ovarian ligament and round ligament were desiccated and divided. Dissection was continued downward to the uterine vessels. The uterine vessels were skeletonized and in turn were desiccated and divided. Bladder flap was developed with LigaSure. The cardinal ligament and uterosacral ligament complex were dense fibrous tissue. The process was duplicated on the right-hand side. Once the round and uterine ovarian ligaments were divided the broad ligament was then divided. The tissue was carefully divided in layers frequently checking the position of the ureter to ensure to minimize chance of mishap. This process was continued down to the uterine vessels which were desiccated and divided divided. The bladder flap dissection was continued. At this point we chose to convert to the vaginal phase of the procedure in order to better appreciate the relationship between the cervix and potential path of the ureter. All CO2 gas was desufflated from the abdomen. The patient was then placed from the low to the high dorsal lithotomy position. Weighted speculum was placed. Mc clamps were placed on the cervix to provide firm downward traction. A halo type liquid tourniquet was created by Injecting multiple small aliquots of quarter percent Marcaine with epinephrine. The cervix was then circumscribed. Using blunt and sharp dissection the anterior and posterior cul-de-sacs were sharply entered. The base of the uterosacral ligaments were clamped on each side divided and transfixed with 0 Vicryl. We advanced in a stepwise fashion up the uterosacral ligaments staying as close as possible to the cervical barrel margin. This involved multiple clamping transection and suturing maneuvers. Eventually the uterus was mobilized. The uterus was slipped through the colpotomy incision without problems. The pelvic peritoneum was pursestringed with a suture of 2-0 Vicryl. The uterosacral ligament stitches were then sutured into the lateral cuff corners to provide secure fixation. The Uterosacral sutures were placed on tension and 10 cc of Marcaine quarter percent was injected into the bodies of the ligament. The uterosacral ligament bodies then were plicated in the midline with 2 sti tches of 0 Vicry to create secure apical suspension. The 0 Vicryl sutures on the base of the uterosacral ligament were like likewise plicated in the midline. The vaginal mucosa was closed with a running stitch of 0 chromic. The abdomen was reinsufflated with CO2 gas and inspected. It was ensured that all bleeding vessels were secure and. The abdomen was lavaged with warm normal saline. Approximately 1 L was left into the abdomen with the patient in the Trendelenburg position. All CO2 gas was vented. Skin wounds were closed with subcuticular stitches of 4-0 Monocryl and dressed with Dermabond. 70 degree video cystoscope then was introduced through the urethra. The bladder interior was inspected and there were no incursions. Both ureters had free flow of clear urine. At this point the Leslie catheter was replaced. Final sponge needle and instrument count was confirmed correct. Patient was moved to the supine. She was extubated and aroused from general anesthesia. She went into the recovery room in good condition. Intraoperative findings were shared with the patient and her family. She will remain overnight with anticipated discharge in the 1 or 2 days. Intraoperative medications Ancef 2 g IV piggyback
[2018-04-16] MEDS ORDERED: BUPIVACAINE 0.25%-EPI 1:200000 PF 30 ML VIAL ONE (16:56)
[2018-04-16] MEDS ORDERED: LACTATED RINGERS 1,000 ML IV ONE ×2 (17:28→18:45)
[2018-04-16] MEDS ORDERED: BUPIVACAINE 0.25%-EPI 1:200000 PF 30 ML VIAL SUBQ ONE ×2 (18:17→19:22)
[2018-04-16] MEDS ORDERED: ROCURONIUM 50 MG/5 ML VIAL IVP ONE (18:34)
[2018-04-16] MEDS ORDERED: NEOSTIGMINE 1 MG/1 ML 10 ML MDV IVP ONE (18:34)
[2018-04-16] MEDS ORDERED: fentaNYL 250 MCG/5 ML VIAL IVP ONE (18:34)
[2018-04-16] MEDS ORDERED: GLYCOPYRROLATE 1 MG/5 ML VIAL IVP ONE (18:34)
[2018-04-16] MEDS ORDERED: DEXAMETHASONE 4 MG/ML VIAL IVP ONE (18:34)
[2018-04-16] MEDS ORDERED: MIDAZOLAM 2 MG/2 ML VIAL IVP ONE (18:34)
[2018-04-16] MEDS ORDERED: PROPOFOL 200 MG/20 ML VIAL IVP ONE (18:34)
[2018-04-16] MEDS ORDERED: ceFAZolin 1 GM VIAL IV ONE (18:34)
[2018-04-16] MEDS ORDERED: ONDANSETRON 4 MG/2 ML VIAL IVP ONE (18:34)
[2018-04-16] MEDS: HYDROmorphone 0.5 MG/0.5 ML SYRINGE IVP PRN ×2 (20:47→23:31)
[2018-04-16] MEDS: LACTATED RINGERS 1,000 ML IV SCH (20:49)
[2018-04-16] MEDS: ACETAMINOPHEN 325 MG TABLET PO PRN (20:50)
[2018-04-16] MEDS: SODIUM CHLORIDE FLUSH 0.9% 10 ML SYRINGE IVP SCH (20:51)
[2018-04-16] MEDS: DOCUSATE SODIUM 100 MG CAPSULE PO SCH (20:51)
[2018-04-16] MEDS: CELECOXIB 100 MG CAPSULE PO SCH (20:51)
[2018-04-16] MEDS: ACETAMINOPHEN 500 MG TABLET PO SCH (20:52)
[2018-04-16] MEDS: ENOXAPARIN 40 MG/0.4 ML SYRINGE SUBQ SCH (21:36)
[2018-04-16] MEDS: SIMETHICONE CHEW 80 MG TABLET PO SCH (21:36)
[2018-04-16] MEDS: SODIUM CHLORIDE FLUSH 0.9% 10 ML SYRINGE IVP PRN (23:31)
[2018-04-17] MEDS: ACETAMINOPHEN 325 MG TABLET PO PRN (00:51)
[2018-04-17] MEDS: oxyCODONE 5 MG TABLET PO PRN ×4 (00:52→20:58)
[2018-04-17] MEDS: ONDANSETRON 4 MG/2 ML VIAL IVP PRN ×3 (00:52→08:52)
[2018-04-17] MEDS: SODIUM CHLORIDE FLUSH 0.9% 10 ML SYRINGE IVP SCH ×3 (00:52→16:43)
[2018-04-17] MEDS: ACETAMINOPHEN 500 MG TABLET PO SCH ×3 (00:53→16:42)
[2018-04-17] MEDS: HYDROmorphone 0.5 MG/0.5 ML SYRINGE IVP PRN ×4 (03:55→12:53)
[2018-04-17] MEDS: LACTATED RINGERS 1,000 ML IV SCH ×3 (04:15→20:17)
[2018-04-17] MEDS: SODIUM CHLORIDE FLUSH 0.9% 10 ML SYRINGE IVP PRN ×5 (06:32→15:33)
[2018-04-17] MEDS: SIMETHICONE CHEW 80 MG TABLET PO SCH ×3 (06:43→20:58)
[2018-04-17] MEDS: PANTOPRAZOLE 40 MG TABLET PO SCH (06:43)
[2018-04-17 07:39] LABS: BASOPHILS % (AUTO) 0.1 %; HGB - HEMOGLOBIN 7.3 g/dL (12.0-16.0); LYMPHOCYTES # (AUTO) 0.7 10^3/uL (1.5-3.5); LYMPHOCYTES % (AUTO) 6.5 %; MEAN CORPUSCULAR HGB CONC 33.7 g/dL (32.0-36.0); MEAN CORPUSCULAR VOLUME 86.1 fL (81.0-99.0); MEAN PLATELET VOLUME 8.4 fL (7.9-10.8); MONOCYTES # (AUTO) 0.5 10^3/uL (0.0-1.0); MONOCYTES % (AUTO) 5.3 %; NEUTROPHILS % (AUTO) 88.1 %; PLT - PLATELET COUNT 224 10^3/uL (130-450); RED BLOOD COUNT 2.52 10^6/uL (4.20-5.40); WHITE BLOOD COUNT 10.2 x10^3/uL (4.8-10.8)
[2018-04-17] MEDS: ENOXAPARIN 40 MG/0.4 ML SYRINGE SUBQ SCH ×2 (08:11→09:03)
[2018-04-17] MEDS: CELECOXIB 100 MG CAPSULE PO SCH ×2 (08:11→20:58)
[2018-04-17] MEDS: DOCUSATE SODIUM 100 MG CAPSULE PO SCH ×2 (08:11→20:58)
[2018-04-17] MEDS: POLYETHYLENE GLYCOL 3350 17 GM PACKET PO SCH (08:12)
--- NOTE | 2018-04-17 08:55 | PROVIDER PROGRESS NOTE ---
Subjective - General Admit Date: 04/16/18 Procedure Date: 04/16/18 Post Op Days: 1 Procedure Performed: LAVH, bilateral salpingectomy, cystoscopy - Review of Systems Wound/Incisions: positive: Healing well, Dressing dry and intact, Other Drain Type: Scant old blood per vagina General: positive: Weakness, Fatigue, Other HEENT: positive: No symptoms Pulmonary: positive: No symptoms Cardiovascular: positive: No symptoms Gastrointestinal: positive: Flatus (No flatus), Other (Feels bloated) Musculoskeletal: positive: No symptoms Skin: positive: No symptoms Psychiatric: positive: No symptoms Objective - Patient Data Vital Signs: Vital Signs x48h Temp Pulse Resp BP Pulse Ox 04/17/18 08:09 98.4 F 83 16 100/48 L 97 04/17/18 04:00 98.6 F 73 14 110/53 L 100 Weight: Weight 04/15/18 04/16/18 04/17/18 23:59 23:59 23:59 Weight (kg) 92 kg Intake & Output: Intake and Output Totals x24h 04/15/18 04/16/18 04/17/18 23:59 23:59 23:59 Intake Total 100 1993.333 Output Total 25 700 Balance 75 1293.333 - Lab Results Lab Results: 04/17/18 07:11 04/16/18 09:30 Other Lab Results: Lab Results x24hrs 04/17/18 04/16/18 04/16/18 Range/Units 07:11 14:35 14:35 WBC 10.2 4.1 L (4.8-10.8) x10^3/uL RBC 2.52 L 3.35 L (4.20-5.40) 10^6/uL Hgb 7.3 L 10.0 L (12.0-16.0) g/dL Hct 21.7 L 28.8 L (37.0-47.0) % MCV 86.1 86.1 (81.0-99.0) fL MCH 29.0 29.8 (27.0-31.0) pg MCHC 33.7 34.5 (32.0-36.0) g/dL RDW 14.0 14.1 (12.0-15.0) % Plt Count 224 213 (130-450) 10^3/uL MPV 8.4 8.1 (7.9-10.8) fL Neut # (Auto) 9.0 H 3.0 (1.5-6.6) 10^3/uL Lymph # (Auto) 0.7 L 0.8 L (1.5-3.5) 10^3/uL [place] # (Auto) 0.5 0.2 (0.0-1.0) 10^3/uL Eos # (Auto) 0.0 0.1 (0.0-0.7) 10^3/uL Baso # (Auto) 0.0 0.0 (0.0-0.1) 10^3/uL Absolute Nucleated RBC 0.00 0.00 x10^3/uL Nucleated RBC % 0.0 0.1 /100WBC Sodium (135-145) mmol/L Potassium (3.5-5.0) mmol/L Chloride (101-111) mmol/L Carbon Dioxide (21-32) mmol/L Anion Gap (6-13) BUN (6-20) mg/dL Creatinine (0.4-1.0) mg/dL Estimated GFR (MDRD) (>89) Glucose (70-100) mg/dL Calcium (8.5-10.3) mg/dL Total Bilirubin (0.2-1.0) mg/dL AST (10-42) IU/L ALT (10-60) IU/L Alkaline Phosphatase (42-121) IU/L Troponin I (<0.49) ng/mL Total Protein (6.7-8.2) g/dL Albumin (3.2-5.5) g/dL Globulin (2.1-4.2) g/dL Albumin/Globulin Ratio (1.0-2.2) Lipase (22-51) U/L Serum HCG, Qual Urine Color Urine Clarity (CLEAR) Urine pH (5.0-7.5) PH Ur Specific [place] (1.002-1.030) Urine Protein (NEGATIVE) mg/dL Urine Glucose (UA) (NEGATIVE) mg/dL Urine Ketones (NEGATIVE) mg/dL Urine Occult Blood (NEGATIVE) Urine Nitrite (NEGATIVE) Urine Bilirubin (NEGATIVE) Urine Urobilinogen (NORMAL) E.U./dL Ur Leukocyte Esterase (NEGATIVE) Urine RBC (0-5) /HPF Urine WBC (0-5) /HPF Ur Squamous Epith Cells (<= Few) Urine Bacteria (None Seen) /HPF Ur Microscopic Review Urine Culture Comments Blood Type B POSITIVE Blood Type Recheck Antibody Screen NEGATIVE 04/16/18 04/16/18 04/16/18 Range/Units 14:25 10:22 09:30 WBC (4.8-10.8) x10^3/uL RBC (4.20-5.40) 10^6/uL Hgb (12.0-16.0) g/dL Hct (37.0-47.0) % MCV (81.0-99.0) fL MCH (27.0-31.0) pg MCHC (32.0-36.0) g/dL RDW (12.0-15.0) % Plt Count (130-450) 10^3/uL MPV (7.9-10.8) fL Neut # (Auto) (1.5-6.6) 10^3/uL Lymph # (Auto) (1.5-3.5) 10^3/uL [place] # (Auto) (0.0-1.0) 10^3/uL Eos # (Auto) (0.0-0.7) 10^3/uL Baso # (Auto) (0.0-0.1) 10^3/uL Absolute Nucleated RBC x10^3/uL Nucleated RBC % /100WBC Sodium (135-145) mmol/L Potassium (3.5-5.0) mmol/L Chloride (101-111) mmol/L Carbon Dioxide (21-32) mmol/L Anion Gap (6-13) BUN (6-20) mg/dL Creatinine (0.4-1.0) mg/dL Estimated GFR (MDRD) (>89) Glucose (70-100) mg/dL Calcium (8.5-10.3) mg/dL Total Bilirubin (0.2-1.0) mg/dL AST (10-42) IU/L ALT (10-60) IU/L Alkaline Phosphatase (42-121) IU/L Troponin I (<0.49) ng/mL Total Protein (6.7-8.2) g/dL Albumin (3.2-5.5) g/dL Globulin (2.1-4.2) g/dL Albumin/Globulin Ratio (1.0-2.2) Lipase (22-51) U/L Serum HCG, Qual NEGATIVE Urine Color YELLOW Urine Clarity CLEAR (CLEAR) Urine pH 7.5 (5.0-7.5) PH Ur Specific [place] 1.015 (1.002-1.030) Urine Protein NEGATIVE (NEGATIVE) mg/dL Urine Glucose (UA) NEGATIVE (NEGATIVE) mg/dL Urine Ketones NEGATIVE (NEGATIVE) mg/dL Urine Occult Blood NEGATIVE (NEGATIVE) Urine Nitrite NEGATIVE (NEGATIVE) Urine Bilirubin NEGATIVE (NEGATIVE) Urine Urobilinogen 0.2 (NORMAL) (NORMAL) E.U./dL Ur Leukocyte Esterase NEGATIVE (NEGATIVE) Urine RBC (0-5) /HPF Urine WBC (0-5) /HPF Ur Squamous Epith Cells (<= Few) Urine Bacteria (None Seen) /HPF Ur Microscopic Review NOT INDICATED Urine Culture Comments NOT INDICATED Blood Type Blood Type Recheck B POSITIVE Antibody Screen 04/16/18 04/16/18 04/16/18 Range/Units 09:30 09:30 09:30 WBC 3.5 L (4.8-10.8) x10^3/uL RBC 3.28 L (4.20-5.40) 10^6/uL Hgb 9.8 L (12.0-16.0) g/dL Hct 28.4 L (37.0-47.0) % MCV 86.5 (81.0-99.0) fL MCH 29.7 (27.0-31.0) pg MCHC 34.3 (32.0-36.0) g/dL RDW 14.2 (12.0-15.0) % Plt Count 188 (130-450) 10^3/uL MPV 7.8 L (7.9-10.8) fL Neut # (Auto) 2.4 (1.5-6.6) 10^3/uL Lymph # (Auto) 0.9 L (1.5-3.5) 10^3/uL [place] # (Auto) 0.2 (0.0-1.0) 10^3/uL Eos # (Auto) 0.0 (0.0-0.7) 10^3/uL Baso # (Auto) 0.0 (0.0-0.1) 10^3/uL Absolute Nucleated RBC 0.00 x10^3/uL Nucleated RBC % 0.0 /100WBC Sodium 139 (135-145) mmol/L Potassium 3.7 (3.5-5.0) mmol/L Chloride 110 (101-111) mmol/L Carbon Dioxide 23 (21-32) mmol/L Anion Gap 6.0 (6-13) BUN 13 (6-20) mg/dL Creatinine 0.5 (0.4-1.0) mg/dL Estimated GFR (MDRD) 134 (>89) Glucose 89 (70-100) mg/dL Calcium 8.5 (8.5-10.3) mg/dL Total Bilirubin 0.7 (0.2-1.0) mg/dL AST 21 (10-42) IU/L ALT 25 (10-60) IU/L Alkaline Phosphatase 37 L (42-121) IU/L Troponin I < 0.04 (<0.49) ng/mL Total Protein 6.1 L (6.7-8.2) g/dL Albumin 3.7 (3.2-5.5) g/dL Globulin 2.4 (2.1-4.2) g/dL Albumin/Globulin Ratio 1.5 (1.0-2.2) Lipase 33 (22-51) U/L Serum HCG, Qual Urine Color Urine Clarity (CLEAR) Urine pH (5.0-7.5) PH Ur Specific [place] (1.002-1.030) Urine Protein (NEGATIVE) mg/dL Urine Glucose (UA) (NEGATIVE) mg/dL Urine Ketones (NEGATIVE) mg/dL Urine Occult Blood (NEGATIVE) Urine Nitrite (NEGATIVE) Urine Bilirubin (NEGATIVE) Urine Urobilinogen (NORMAL) E.U./dL Ur Leukocyte Esterase (NEGATIVE) Urine RBC (0-5) /HPF Urine WBC (0-5) /HPF Ur Squamous Epith Cells (<= Few) Urine Bacteria (None Seen) /HPF Ur Microscopic Review Urine Culture Comments Blood Type Blood Type Recheck Antibody Screen 04/16/18 Range/Units 08:45 WBC (4.8-10.8) x10^3/uL RBC (4.20-5.40) 10^6/uL Hgb (12.0-16.0) g/dL Hct (37.0-47.0) % MCV (81.0-99.0) fL MCH (27.0-31.0) pg MCHC (32.0-36.0) g/dL RDW (12.0-15.0) % Plt Count (130-450) 10^3/uL MPV (7.9-10.8) fL Neut # (Auto) (1.5-6.6) 10^3/uL Lymph # (Auto) (1.5-3.5) 10^3/uL [place] # (Auto) (0.0-1.0) 10^3/uL Eos # (Auto) (0.0-0.7) 10^3/uL Baso # (Auto) (0.0-0.1) 10^3/uL Absolute Nucleated RBC x10^3/uL Nucleated RBC % /100WBC Sodium (135-145) mmol/L Potassium (3.5-5.0) mmol/L Chloride (101-111) mmol/L Carbon Dioxide (21-32) mmol/L Anion Gap (6-13) BUN (6-20) mg/dL Creatinine (0.4-1.0) mg/dL Estimated GFR (MDRD) (>89) Glucose (70-100) mg/dL Calcium (8.5-10.3) mg/dL Total Bilirubin (0.2-1.0) mg/dL AST (10-42) IU/L ALT (10-60) IU/L Alkaline Phosphatase (42-121) IU/L Troponin I (<0.49) ng/mL Total Protein (6.7-8.2) g/dL Albumin (3.2-5.5) g/dL Globulin (2.1-4.2) g/dL Albumin/Globulin Ratio (1.0-2.2) Lipase (22-51) U/L Serum HCG, Qual Urine Color RED/BLOODY Urine Clarity BLOODY (CLEAR) Urine pH (5.0-7.5) PH Ur Specific [place] (1.002-1.030) Urine Protein (NEGATIVE) mg/dL Urine Glucose (UA) NEGATIVE (NEGATIVE) mg/dL Urine Ketones (NEGATIVE) mg/dL Urine Occult Blood LARGE H (NEGATIVE) Urine Nitrite (NEGATIVE) Urine Bilirubin NEGATIVE (NEGATIVE) Urine Urobilinogen (NORMAL) E.U./dL Ur Leukocyte Esterase (NEGATIVE) Urine RBC TNTC H (0-5) /HPF Urine WBC 6-10 H (0-5) /HPF Ur Squamous Epith Cells MOD Squamous H (<= Few) Urine Bacteria Few (None Seen) /HPF Ur Microscopic Review INDICATED Urine Culture Comments NOT INDICATED Blood Type Blood Type Recheck Antibody Screen - Current Medications Current Medications: Current Medications Generic Name Dose Route Start Last Admin Trade Name Freq PRN Reason Stop Dose Admin Acetaminophen 650 mg 04/16/18 13:14 04/16/18 20:50 Tylenol PO 650 mg Q4HR PRN Administration Pain 1 to 4 Acetaminophen 1,000 mg 04/16/18 17:00 04/17/18 08:10 Tylenol PO 1,000 mg Q8H KRZYSZTOF Administration Celecoxib 200 mg 04/16/18 21:00 04/17/18 08:11 Celebrex PO 200 mg BID KRZYSZTOF Administration Docusate Sodium 100 mg 04/16/18 21:00 04/17/18 08:11 Colace 100mg Capsule PO 100 mg BID KRZYSZTOF Administration Enoxaparin Sodium 40 mg 04/16/18 22:00 04/16/18 21:36 Lovenox SUBQ 40 mg DAILY KRZYSZTOF Administration Hydromorphone HCl 0.5 mg 04/16/18 13:14 04/17/18 06:32 Dilaudid Inj Syringe IVP 0.5 mg Q2H PRN Administration Pain 8 to 10 Lactated Ringer's 1,000 mls @ 100 mls/hr 04/16/18 17:00 04/17/18 06:45 Lr IV 100 mls/hr .Q10H KRZYSZTOF Administration Ondansetron HCl 4 mg 04/16/18 13:14 04/17/18 06:32 Zofran Inj IVP 4 mg Q6HR PRN Administration Nausea / Vomiting Oxycodone HCl 5 mg 04/16/18 16:13 04/17/18 06:32 Roxicodone PO 5 mg Q4HR PRN Administration PAIN Pantoprazole Sodium 40 mg 04/17/18 07:00 04/17/18 06:43 Protonix PO 40 mg QDAC KRZYSZTOF Administration Polyethylene Glycol 17 gm 04/17/18 09:00 04/17/18 08:12 Miralax PO 17 gm DAILY KRZYSZTOF Administration Simethicone 80 mg 04/16/18 22:00 04/17/18 06:43 Mylicon PO 80 mg TID KRZYSZTOF Administration Sodium Chloride 10 ml 04/16/18 13:14 04/17/18 06:32 Normal Saline Flush 0.9% IVP 10 ml PRN PRN Administration NEEDED PER PROVIDER ORDERS Sodium Chloride 10 ml 04/16/18 17:00 04/17/18 03:55 Normal Saline Flush 0.9% IVP 10 ml 0100,0900,1700 KRZYSZTOF Administration Physical Exam - Physical Exam General: positive: Other (Quiet demeanor, not active) HEENT: positive: EOMI, Moist mucous membranes Neck: positive: Supple w/out meningeal sx Cardiac: positive: Regular Rate, Murmur Present (Grade 2-3 systolic ejection murmur without gallop) Resipratory: positive: Clear to ausultation rachel Abdomen: positive: Distended, Tender to palpation (Mild tenderness all 4 quadrants) Female : positive: Normal external, Other (Scant old blood on pad) Back: positive: Normal Extremities: positive: Normal ROM, Non tender, Pedal Pulses Present Skin: positive: Warm and dry Neurologic: positive: Alert and Oriented X 3, Normal Sensation, Normal Speech Assessment/Plan - Assessment/Plan Assessment: Patient's hemoglobin has equilibrated to 7 g from appropriate op baseline of 9.8 g. This is slightly greater than expected with 100 cc blood loss. Additionally there is abdominal bloating. Will hold morning Lovenox since Lovenox dose should not be greater than 40 mg every 24 hours. Patient's anemia remains symptomatic and given that we are below 8 g transfusion is recommended. No evidence of recurrence of DVT..
[2018-04-17] MEDS ORDERED: FUROSEMIDE 20 MG/2 ML VIAL IVP PRN (09:08)
[2018-04-17] MEDS ORDERED: ACETAMINOPHEN 325 MG TABLET PO ONE (09:30)
[2018-04-17] MEDS ORDERED: diphenhydrAMINE INJ 50 MG/ML VIAL IVP ONE (09:30)
[2018-04-17] MEDS ORDERED: SODIUM CHLORIDE 0.9% 1,000 ML IV SCH (10:00)
[2018-04-17] MEDS ORDERED: SODIUM CHLORIDE 0.9% 500 ML IV ONE (11:00)
[2018-04-17] MEDS ORDERED: SENNA 8.6 MG TABLET PO SCH (17:00)
[2018-04-17 18:17] LABS: BASOPHILS % (AUTO) 0.1 %; EOSINOPHILS % (AUTO) 0.1 %; HGB - HEMOGLOBIN 8.7 g/dL (12.0-16.0); LYMPHOCYTES # (AUTO) 0.9 10^3/uL (1.5-3.5); LYMPHOCYTES % (AUTO) 7.6 %; MEAN CORPUSCULAR HEMOGLOBIN 29.7 pg (27.0-31.0); MEAN CORPUSCULAR HGB CONC 34.7 g/dL (32.0-36.0); MEAN CORPUSCULAR VOLUME 85.6 fL (81.0-99.0); MEAN PLATELET VOLUME 8.1 fL (7.9-10.8); MONOCYTES # (AUTO) 0.7 10^3/uL (0.0-1.0); MONOCYTES % (AUTO) 6.2 %; NEUTROPHILS # (AUTO) 9.9 10^3/uL (1.5-6.6); PLT - PLATELET COUNT 213 10^3/uL (130-450); RED BLOOD COUNT 2.95 10^6/uL (4.20-5.40); WHITE BLOOD COUNT 11.5 x10^3/uL (4.8-10.8)
[2018-04-18] MEDS: SODIUM CHLORIDE FLUSH 0.9% 10 ML SYRINGE IVP SCH ×3 (01:07→16:33)
[2018-04-18] MEDS: ACETAMINOPHEN 500 MG TABLET PO SCH ×3 (01:17→16:33)
[2018-04-18] MEDS: SIMETHICONE CHEW 80 MG TABLET PO SCH ×2 (05:54→15:02)
[2018-04-18] MEDS: oxyCODONE 5 MG TABLET PO PRN ×3 (05:54→15:55)
[2018-04-18] MEDS: PANTOPRAZOLE 40 MG TABLET PO SCH (05:54)
[2018-04-18 06:11] LABS: BASOPHILS % (AUTO) 0.5 %; EOSINOPHILS % (AUTO) 0.5 %; HGB - HEMOGLOBIN 8.4 g/dL (12.0-16.0); LYMPHOCYTES # (AUTO) 1.3 10^3/uL (1.5-3.5); LYMPHOCYTES % (AUTO) 20.9 %; MEAN CORPUSCULAR HEMOGLOBIN 29.4 pg (27.0-31.0); MEAN CORPUSCULAR HGB CONC 33.5 g/dL (32.0-36.0); MEAN CORPUSCULAR VOLUME 87.7 fL (81.0-99.0); MEAN PLATELET VOLUME 7.8 fL (7.9-10.8); MONOCYTES # (AUTO) 0.4 10^3/uL (0.0-1.0); MONOCYTES % (AUTO) 6.5 %; NEUTROPHILS # (AUTO) 4.3 10^3/uL (1.5-6.6); NEUTROPHILS % (AUTO) 71.6 %; PLT - PLATELET COUNT 197 10^3/uL (130-450); RED BLOOD COUNT 2.87 10^6/uL (4.20-5.40); RED CELL DISTRIBUTION WIDTH 13.7 % (12.0-15.0)
[2018-04-18] MEDS: LACTATED RINGERS 1,000 ML IV SCH (06:24)
[2018-04-18] MEDS: CELECOXIB 100 MG CAPSULE PO SCH (08:23)
[2018-04-18] MEDS: DOCUSATE SODIUM 100 MG CAPSULE PO SCH (08:23)
[2018-04-18] MEDS: POLYETHYLENE GLYCOL 3350 17 GM PACKET PO SCH (08:23)
[2018-04-18] MEDS: ENOXAPARIN 40 MG/0.4 ML SYRINGE SUBQ SCH (08:24)
--- NOTE | 2018-04-18 08:26 | PROVIDER PROGRESS NOTE ---
Subjective - General Admit Date: 04/16/18 Procedure Date: 04/16/18 Post Op Days: 2 Procedure Performed: LAVH, bilateral salpingectomy, cystoscopy - Review of Systems Wound/Incisions: positive: Healing well, Dressing dry and intact, Other Drain Type: No drainage on maira-pad General: positive: Fatigue HEENT: positive: No symptoms Pulmonary: positive: No symptoms Cardiovascular: positive: No symptoms Gastrointestinal: positive: Flatus (Meager flatus), Constipation (No bowel movement), Other (Feels bloated) Genitourinary: positive: Other (No swelling, no blood on maira-pad) Musculoskeletal: positive: No symptoms (No calf tenderness or Homans sign) Skin: positive: No symptoms Psychiatric: positive: No symptoms Objective - Patient Data Vital Signs: Vital Signs x48h Temp Pulse Resp BP Pulse Ox 04/18/18 07:45 98.6 F 84 19 121/67 96 04/18/18 03:00 99.1 F 95 16 127/56 L 96 Weight: Weight 04/16/18 04/17/18 04/18/18 23:59 23:59 23:59 Weight (kg) 92 kg Intake & Output: Intake and Output Totals x24h 04/16/18 04/17/18 04/18/18 23:59 23:59 23:59 Intake Total 100 5633.333 1800 Output Total 25 3000 3300 Balance 75 2633.333 -1500 - Lab Results Lab Results: 04/18/18 06:01 04/16/18 09:30 Other Lab Results: Lab Results x24hrs 04/18/18 04/17/18 04/16/18 Range/Units 06:01 18:00 14:35 WBC 6.0 11.5 H (4.8-10.8) x10^3/uL RBC 2.87 L 2.95 L (4.20-5.40) 10^6/uL Hgb 8.4 L 8.7 L (12.0-16.0) g/dL Hct 25.2 L 25.2 L (37.0-47.0) % MCV 87.7 85.6 (81.0-99.0) fL MCH 29.4 29.7 (27.0-31.0) pg MCHC 33.5 34.7 (32.0-36.0) g/dL RDW 13.7 14.0 (12.0-15.0) % Plt Count 197 213 (130-450) 10^3/uL MPV 7.8 L 8.1 (7.9-10.8) fL Neut # (Auto) 4.3 9.9 H (1.5-6.6) 10^3/uL Lymph # (Auto) 1.3 L 0.9 L (1.5-3.5) 10^3/uL [place] # (Auto) 0.4 0.7 (0.0-1.0) 10^3/uL Eos # (Auto) 0.0 0.0 (0.0-0.7) 10^3/uL Baso # (Auto) 0.0 0.0 (0.0-0.1) 10^3/uL Absolute Nucleated RBC 0.00 0.00 x10^3/uL Nucleated RBC % 0.0 0.0 /100WBC Blood Type Cancelled Antibody Screen Cancelled Crossmatch IS Only See Detail - Current Medications Current Medications: Current Medications Generic Name Dose Route Start Last Admin Trade Name Freq PRN Reason Stop Dose Admin Acetaminophen 650 mg 04/16/18 13:14 04/16/18 20:50 Tylenol PO 650 mg Q4HR PRN Administration Pain 1 to 4 Acetaminophen 1,000 mg 04/16/18 17:00 04/18/18 01:17 Tylenol PO 1,000 mg Q8H KRZYSZTOF Administration Celecoxib 200 mg 04/16/18 21:00 04/17/18 20:58 Celebrex PO 200 mg BID KRZYSZTOF Administration Docusate Sodium 100 mg 04/16/18 21:00 04/17/18 20:58 Colace 100mg Capsule PO 100 mg BID KRZYSZTOF Administration Enoxaparin Sodium 40 mg 04/16/18 22:00 04/17/18 09:03 Lovenox SUBQ Not Given DAILY KRZYSZTOF Furosemide 20 mg 04/17/18 09:08 04/17/18 15:30 Lasix Inj 20mg Vial IVP 04/18/18 09:07 20 mg ONCE PRN Administration Between units Hydromorphone HCl 0.5 mg 04/16/18 13:14 04/17/18 12:53 Dilaudid Inj Syringe IVP 0.5 mg Q2H PRN Administration Pain 8 to 10 Lactated Ringer's 1,000 mls @ 100 mls/hr 04/16/18 17:00 04/18/18 06:24 Lr IV 100 mls/hr .Q10H KRZYSZTOF Administration Ondansetron HCl 4 mg 04/16/18 13:14 04/17/18 08:52 Zofran Inj IVP 4 mg Q6HR PRN Administration Nausea / Vomiting Oxycodone HCl 5 mg 04/16/18 16:13 04/18/18 05:54 Roxicodone PO 5 mg Q4HR PRN Administration PAIN Pantoprazole Sodium 40 mg 04/17/18 07:00 04/18/18 05:54 Protonix PO 40 mg QDAC KRZYSZTOF Administration Polyethylene Glycol 17 gm 04/17/18 09:00 04/17/18 08:12 Miralax PO 17 gm DAILY KRZYSZTOF Administration Simethicone 80 mg 04/16/18 22:00 04/18/18 05:54 Mylicon PO 80 mg TID KRZYSZTOF Administration Sodium Chloride 10 ml 04/16/18 13:14 04/17/18 15:33 Normal Saline Flush 0.9% IVP 10 ml PRN PRN Administration NEEDED PER PROVIDER ORDERS Sodium Chloride 10 ml 04/16/18 17:00 04/18/18 01:07 Normal Saline Flush 0.9% IVP Not Given 0100,0900,1700 [facility] Physical Exam - Physical Exam General: positive: No acute distress, Alert HEENT: positive: EOMI, Moist mucous membranes Neck: positive: Supple w/out meningeal sx Cardiac: positive: Regular Rate Resipratory: positive: Clear to ausultation rachel Abdomen: positive: Distended (Has decreased compared to yesterday) Female : positive: Normal external Extremities: positive: Normal ROM, No pedal edema, Non tender Skin: positive: Warm and dry Neurologic: positive: Alert and Oriented X 3 Assessment/Plan - Assessment/Plan Assessment: .Patient continues to improve. Her hemoglobin is stable compared to her post transfusion draw. Patient continues constipation and will require bowel regimen. Patient taking oral nutrition and fluids well. Plan: * Increase activity; * begin Lovenox later today; * increase laxative protocol
[2018-04-18] MEDS ORDERED: DOCUSATE SODIUM 250 MG CAPSULE PO SCH (09:00)
[2018-04-18] MEDS ORDERED: SENNA 8.6 MG TABLET PO SCH (09:00)
[2018-04-18] MEDS ORDERED: MAGNESIUM HYDROXIDE 2,400 MG/30 ML UDC PO ONE (12:13)
--- NOTE | 2018-04-18 17:15 | Discharge Plan ---
Discharge Plan Disposition: 01 Home, Self Care Condition: Good Diet: Regular Activity Restrictions: Activity as Tolerated Shower Restrictions: No Driving Restrictions: No Weight Bearing: Full Weight No Smoking: If you smoke, Please STOP! Call for help. Follow-up with: Sanya Gaitan MD [Primary Care Provider] - Nadege Christensen DO [Provider Admit Priv/Credential] -
[2018-04-18 17:29] VITALS: BP 119/72
--- NOTE | 2018-04-18 20:16 | DISCHARGE SUMMARY ---
Physician: Oskar Singletary MD DATE OF ADMISSION: 04/16/2018 DATE OF DISCHARGE: 04/18/2018 DIAGNOSES 1. Severe uterine bleeding associated with unremitting headache and weakness. 2. Abrupt 4 g hemoglobin drop. 3. Severe anemia. 4. Final pathology pending. 5. Modified Schulz's procedure. SURGERY: Laparoscopic-assisted vaginal hysterectomy with bilateral salpingectomy, Schulz's Culdoplasty; cystoscopy. COMPLICATIONS: None. Patient is a 42-year-old , 6, para 6 woman with longstanding history of menorrhagia and associated pelvic pain and dysmenorrhea. She was scheduled for LAVH on 05/10/2018. On 04/07/2018 she reported menorrhagia and hemoglobin check was normal at 13.6. The bleeding accelerated and she presented to the emergency room with a severe headache and weakness. At that time, her hemoglobin was 9.8. Previous workup ruled out thyroid dysfunction and ultrasound did not find any endometrial or myometrial pathology. Reference emergency room/admission H and P. HOSPITAL COURSE: The patient was admitted for surgical preparation. She can continue to bleed though not as brisk and hemoglobin stabilized at 10.0 grams. She underwent an uneventful laparoscopic-assisted vaginal hysterectomy with bilateral salpingectomy and a modified Schulz's procedure and cystoscopy. Procedure went well with a total of 100 mL of blood loss. At the time of surgery, the uterus was noted to be enlarged, approximately 6-week size with evidence of tubal ligation. Final pathology is pending. The patient went to the recovery room in good condition. Two hours post surgery she was begun on Lovenox 40 mg subcutaneous every 24 hours for DVT prophylaxis. She was found to be at increased risk/high risk by her Caprini score. On the morning of postoperative day #1, she was noted continued weakness and experienced a 2.8 g hemoglobin drop. She had some vaginal cuff bleeding. These changes were attributed to the Lovenox, which was temporarily held. She was transfused 1 unit of packed red blood cells and post transfusion Hbg stabilzed at 8.7 grams. She began to gain strength and normal function. On postoperative day #2, she did well, was tolerating solid and oral nutrition. She was given laxative protocol and uneventfully passed a moderate sized bowel movement. She declined Lovenox. At that point, we had an informed consent discussion about restarting Lovenox 40 mg subcutaneous daily as DVT prophylaxis. She understands that this is to prevent possible DVT or life threatening pulmonary embolism. I reviewed her to Caprini score as being high and the prophylaxis was recommended. She had Lovenox prophylaxis with her last DVT and suffered several bleeding episodes. She strongly refuses continued Lovenox. She is up and active and pledgets to stay so. She will begin her mini dose aspirin 162 mg daily. We had an informed refusal discussion with nursing present. She was prepared for discharge. Complete wound care and warning signs/callback instructions were reviewed. She will be seen in the office in 1 week for a wound and general check. DISCHARGE MEDICATIONS 1. Celebrex 200 mg b.i.d. x10 days. 2. Percocet 5/325 one tab q.4 hours p.r.n. breakthrough pain. 3. Colace 250 mg b.i.d. 4. ASA 160mg Daily TD: 04/18/2018 17:39 [facility]
== END 2018-04-18 17:35 | disposition home or self-care (01) | DRG 742 ==
LOC: ED 08:20 → MS2 13:14
PROVIDERS: ADMIT Obstetrics & Gynecology; ATTEND Obstetrics & Gynecology
PROC: 0UQF8ZZ Repair Cul-de-sac, Via Natural or Artificial Opening Endoscopic (ICD-10-PCS; 2018-04-16)
PROC: 0UT9FZZ Resection of Uterus, Via Natural or Artificial Opening With Percutaneous Endoscopic Assistance (ICD-10-PCS; principal; 2018-04-16 17:15)
PROC: 0UT7FZZ Resection of Bilateral Fallopian Tubes, Via Natural or Artificial Opening With Percutaneous Endoscopic Assistance (ICD-10-PCS; 2018-04-16 17:15)
PROC: 30233N1 Transfusion of Nonautologous Red Blood Cells into Peripheral Vein, Percutaneous Approach (ICD-10-PCS; 2018-04-17)
DX: N92.4 Excessive bleeding in the premenopausal period (principal); D62 Acute posthemorrhagic anemia; N94.6 Dysmenorrhea, unspecified; N81.10 Cystocele, unspecified; N81.6 Rectocele; Z53.29 Procedure and treatment not carried out because of patient's decision for other reasons; Z79.82 Long term (current) use of aspirin; Z85.41 Personal history of malignant neoplasm of cervix uteri; Z87.891 Personal history of nicotine dependence; Z86.718 Personal history of other venous thrombosis and embolism
CPT/HCPCS: 36415; 51701; 80053; 81001; 81003; 83690; 84484; 84703; 85025; 86850; 86900; 86901; 86920; 87086; 99283; 99284

== ENCOUNTER 2018-07-10 09:41 | Outpatient (CLI) | payer OTHER | END 2018-07-10 09:42 | disposition short-term general hospital (02) | LOC: EMS 09:41 | PROVIDERS: ATTEND Surgery | DX: S01.91XA Laceration without foreign body of unspecified part of head, initial encounter (principal); S19.9XXA Unspecified injury of neck, initial encounter; W18.30XA Fall on same level, unspecified, initial encounter; R51 Headache; M54.2 Cervicalgia; R20.0 Anesthesia of skin; R55 Syncope and collapse; R56.9 Unspecified convulsions; R11.0 Nausea; R42 Dizziness and giddiness | CPT/HCPCS: A0170; A0425; A0427 ==

== ENCOUNTER 2018-09-01 17:39 | Outpatient (CLI) | payer OTHER ==
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
== END 2018-09-01 17:40 | disposition home or self-care (01) ==
LOC: DI 17:39
PROVIDERS: ATTEND Registered Nurse
DX: M54.2 Cervicalgia (principal)
CPT/HCPCS: 72040

== ENCOUNTER 2019-08-06 14:03 | Outpatient (CLI) | payer OTHER | END 2019-08-06 14:04 | disposition critical access hospital (66) | LOC: EMS 14:03 | PROVIDERS: ATTEND Surgery | DX: R55 Syncope and collapse (principal); R56.9 Unspecified convulsions | CPT/HCPCS: A0425; A0427 ==

== ENCOUNTER 2019-08-06 14:20 | Emergency (ER) | payer OTHER ==
[2019-08-06 15:16] LABS: BASOPHILS % (AUTO) 0.8 %; EOSINOPHILS # (AUTO) 0.1 10^3/uL (0.0-0.7); HGB - HEMOGLOBIN 14.7 g/dL (12.0-16.0); MEAN CORPUSCULAR HEMOGLOBIN 30.4 pg (27.0-31.0); MEAN CORPUSCULAR HGB CONC 33.7 g/dL (32.0-36.0); MEAN CORPUSCULAR VOLUME 90.1 fL (81.0-99.0); MEAN PLATELET VOLUME 9.8 fL (7.9-10.8); MONOCYTES # (AUTO) 0.3 10^3/uL (0.0-1.0); MONOCYTES % (AUTO) 6.2 %; NEUTROPHILS # (AUTO) 3.5 10^3/uL (1.5-6.6); NEUTROPHILS % (AUTO) 71.8 %; PLT - PLATELET COUNT 175 10^3/uL (130-450); RED BLOOD COUNT 4.84 10^6/uL (4.20-5.40); RED CELL DISTRIBUTION WIDTH 12.9 % (12.0-15.0); WHITE BLOOD COUNT 4.8 x10^3/uL (4.8-10.8)
[2019-08-06 15:22] VITALS: BP 145/85
--- NOTE | 2019-08-06 15:30 | ED Physician Documentation ---
PD HPI SEIZURE - Stated complaint Stated Complaint: SZ - Chief complaint Chief Complaint: Neuro - History obtained from History obtained from: Patient - History of Present Illness Timing - onset: Today Witnessed: Witnessed Number of seizures: Single, Lasted minutes Description of seizure activity: Generalized Injury during seizure: None Associated symptoms: Other (felt warm prior to seizure) History of seizures: Known seizure disorder Contributing factors: Sleep deprivation, Other (stress) Similar symptoms before: No diagnosis Recently seen: Not recently seen - Additional information Additional information: 43-year-old female was at home she had made some food for herself when she became overwhelmed with a feeling of warmth she felt that she might pass out she went to go sit down in her roommate indicates that at that time she collapsed and had a seizure. The patient did not injure herself when she collapsed and she does not have any other specific symptoms now. She denies any current illness. She has been under a significant amount of stress with her mother being recently diagnosed with uterine cancer that has progressed over the past several months and she has been placed into hospice. The patient has not been sleeping well. 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 At that time she was seen and treated at [facility] in [place]. She does not recall them doing a CAT scan of her head. She did not start any seizure medication and she has not had any follow-up with neurology.Her seizure was thought to be related to her head injury at the time. The patient states that she is now questioning that as she felt very similar when she had her seizure today and she did not injure her head today. Review of Systems Constitutional: reports: Fatigue. denies: Fever, Chills, Myalgias Eyes: denies: Decreased vision Ears: denies: Ear pain Nose: denies: Rhinorrhea / runny nose, Congestion Throat: denies: Sore throat Cardiac: denies: Chest pain / pressure, Palpitations Respiratory: denies: Dyspnea, Cough GI: denies: Abdominal Pain, Nausea, Vomiting, Constipation, Diarrhea : denies: Dysuria, Frequency Skin: denies: Rash Musculoskeletal: denies: Neck pain, Back pain, Extremity pain Neurologic: reports: Seizure, Headache. 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: Tubal ligation - Present Medications Home Medications: Ambulatory Orders Medication Instructions Recorded Confirmed Aspirin 81 mg PO DAILY 05/11/17 04/18/18 - Allergies Allergies/Adverse Reactions: Allergies Allergy/AdvReac Type Severity Reaction Status Date / Time enoxaparin [From Lovenox] Allergy Unknown Verified 08/06/19 14:33 ketorolac [From Toradol] Allergy Unknown Verified 08/06/19 14:38 tramadol Allergy Hallucinati Verified 11/04/17 07:31 ons warfarin Allergy Unknown Verified 08/06/19 14:38 - Social History Does the pt smoke?: No Smoking Status: Never smoker Does the pt drink ETOH?: No Does the pt have substance abuse?: No - Immunizations Immunizations are current?: Yes - POLST Patient has POLST: No PD ED PE NORMAL - Vitals Vital signs reviewed: Yes (hypertensive mild ) - General General: Alert and oriented X 3, No acute distress, Well developed/nourished - HEENT HEENT: Atraumatic, PERRL, EOMI, Ears normal, Moist mucous membranes, Pharynx benign, Dentition benign - Neck Neck: Supple, no meningeal sign, No bony TTP - Cardiac Cardiac: RRR, No murmur - Respiratory Respiratory: No respiratory distress, Clear bilaterally - Abdomen Abdomen: Normal bowel sounds, Soft, Non tender, Non distended, No organomegaly - Back Back: No CVA TTP, No spinal TTP - Derm Derm: Normal color, Warm and dry, No rash - Extremities Extremities: No deformity, No edema, No calf tenderness / cord - Neuro Neuro: Alert and oriented X 3, 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, No motor deficit, No sensory def icit, Normal speech Eye Opening: Spontaneous Motor: Obeys Commands Verbal: Oriented GCS Score: 15 - Psych Psych: Normal mood, Normal affect Results - Vitals Vitals: Vital Signs - 24 hr 08/06/19 08/06/19 14:33 15:21 Temperature 36.7 C Heart Rate 66 69 Respiratory 17 14 Rate Blood Pressure 148/91 H 145/85 H O2 Saturation 98 100 Oxygen O2 Source Room air - EKG (time done) 1501 Rate: Rate (enter#) (60) Rhythm: NSR QRS: Low voltage Compare to prior EKG: Unchanged from prior EKG (SPT 05-11-2017 no sig change) Computer interpretation: Agree with computer - Labs Labs: Laboratory Tests 08/06/19 08/06/19 08/06/19 15:10 15:10 16:15 WBC 4.8 RBC 4.84 Hgb 14.7 Hct 43.6 MCV 90.1 MCH 30.4 MCHC 33.7 RDW 12.9 Plt Count 175 MPV 9.8 Neut # (Auto) 3.5 Lymph # (Auto) 1.0 L [place] # (Auto) 0.3 Eos # (Auto) 0.1 Baso # (Auto) 0.0 Absolute Nucleated RBC 0.00 Nucleated RBC % 0.0 Sodium 139 Potassium 3.4 L Chloride 105 Carbon Dioxide 26 Anion Gap 8.0 BUN 10 Creatinine 0.8 Estimated GFR (MDRD) 78 L Glucose 97 Calcium 9.1 Total Bilirubin 1.1 H AST 28 ALT 29 Alkaline Phosphatase 46 Total Protein 7.2 Albumin 4.4 Globulin 2.8 Albumin/Globulin Ratio 1.6 Lipase 30 Urine Color YELLOW Urine Clarity CLEAR Urine pH 6.5 Ur Specific [place] 1.020 Urine Protein NEGATIVE Urine Glucose (UA) NEGATIVE Urine Ketones 15 H Urine Occult Blood TRACE-INTA Urine Nitrite NEGATIVE Urine Bilirubin NEGATIVE Urine Urobilinogen 0.2 (NORMAL) Ur Leukocyte Esterase NEGATIVE Ur Microscopic Review NOT INDICATED Urine Culture Comments NOT INDICATED Urine HCG, Qual NEGATIVE - Rads (name of study) CT head Radiology: Prelim report reviewed (Impression: Normal head CT.), EMP read indepedently, See rad report PD MEDICAL DECISION MAKING - ED course Complexity details: reviewed old records, reviewed results, re-evaluated patient, considered differential, d/w patient ED course: 43-year-old female with a second seizure today appears to have had seizure related to exceptional stress. She has not been sleeping well and is emotional when talking about her mother going into hospice. Her exam and review of systems is otherwise unremarkable and her work up is unremarkable. She has not had follow up with neurology. Departure - Departure Disposition: 01 Home, Self Care Clinical Impression: Seizure Condition: Stable Instructions: ED Seizure Recurrent Follow-Up: Shefali Antonio ARNP [Credentialed Staff Provider] - Comments: Today it appears you have had a seizure as a manifestation of exceptional stre ss. You will need to have follow-up with a neurologist. Contact your primary care doctor for a referral to neurology. You will need to observe seizure precautions until that time. This includes no driving no bathing in a tub alone no climbing on ladders no standing on roofs and not putting herself into any compromising situation in which he might injure yourself or someone else if you were to have a seizure. In the meantime adequate regular sleep will always help. Forms: Activity restrictions Discharge Date/Time: 08/06/19 16:52
[2019-08-06 15:32] LABS: ALBUMIN 4.4 g/dL (3.2-5.5); ALBUMIN/GLOBULIN RATIO 1.6 (1.0-2.2); BILIRUBIN,TOTAL 1.1 mg/dL (0.2-1.0); CALCIUM 9.1 mg/dL (8.5-10.3); CREATININE 0.8 mg/dL (0.4-1.0); TOTAL PROTEIN 7.2 g/dL (6.7-8.2)
--- NOTE | 2019-08-06 15:55 | CT Report ---
Reason: seizure Procedure Date: 08/06/2019 Accession Number: [id number] / [id number] Procedure: CT - HEAD WO CPT Code: Final Report FULL RESULT: EXAM: CT HEAD EXAM DATE: 08/06/2019 03:42 PM. CLINICAL HISTORY: Seizure. COMPARISON: 02/26/2013. TECHNIQUE: Multiaxial CT images were obtained from the foramen magnum to the vertex. Reformats: Sagittal and coronal. IV contrast: None. In accordance with CT protocol optimization, one or more of the following dose reduction techniques were utilized for this exam: automated exposure control, adjustment of mA and/or KV based on patient size, or use of iterative reconstructive technique. FINDINGS: Parenchyma: No intraparenchymal hemorrhage. No evidence of mass, midline shift, or CT findings of infarction. Griffin-white differentiation is distinct. Extraaxial Spaces: Normal for age. No subdural or epidural collections identified. Ventricles: Normal in size and position. Sinuses and Orbits: Imaged paranasal sinuses, orbits, and mastoids show no significant abnormality. Bones: No evidence of fracture or calvarial defect. Other: None. IMPRESSION: Normal head CT. RADIA
[2019-08-06 16:32] LABS: BILIRUBIN,URINE NEGATIVE (NEGATIVE); GLUCOSE, URINE (UA) NEGATIVE (NEGATIVE); KETONES,URINE (UA) 15 mg/dL (NEGATIVE); LEUKOCYTE ESTERASE, URINE NEGATIVE (NEGATIVE); NITRITE,URINE NEGATIVE (NEGATIVE); OCCULT BLOOD,URINE TRACE-INTA (NEGATIVE); PH,URINE 6.5 PH (5.0-7.5); PROTEIN,URINE NEGATIVE (NEGATIVE); UROBILINOGEN,URINE 0.2 (NORMAL) E.U./dL (NORMAL)
[2019-08-06 16:35] LABS: CLARITY,URINE CLEAR (CLEAR); HCG UR QUAL NEGATIVE
== END 2019-08-06 16:52 | disposition home or self-care (01) ==
LOC: EDUNIT# → ED 14:20
DX: R56.9 Unspecified convulsions (principal); I10 Essential (primary) hypertension
CPT/HCPCS: 36415; 70450; 80053; 81001; 81003; 81025; 83690; 85025; 87086; 93005; 99283; 99284

== ENCOUNTER 2020-03-20 15:45 | Outpatient (CLI) | payer OTHER | END 2020-03-20 23:59 | disposition home or self-care (01) | LOC: LAB.R 15:45 | PROVIDERS: ATTEND Physician Assistant Medical | DX: R50.9 Fever, unspecified (principal); R53.83 Other fatigue; R35.8 Other polyuria; Z20.828 Contact with and (suspected) exposure to other viral communicable diseases | CPT/HCPCS: 87077; 87086; 87181; 87275; 87276 ==

== ENCOUNTER 2020-03-23 16:23 | Emergency (ER) | payer OTHER ==
[2020-03-23] MEDS ORDERED: cefTRIAXone 1 GM VIAL IVP STA (17:09)
[2020-03-23] MEDS ORDERED: SODIUM CHLORIDE 0.9% 1,000 ML IV STA ×2 (17:09)
--- NOTE | 2020-03-23 17:12 | ED Physician Documentation ---
History of Present Illness - Stated complaint Stated Complaint: KIDNEY PROB - Chief complaint Chief Complaint: General - History obtained from History obtained from: Patient - History of Present Illness Timing: How many days ago (3) Pain level max: 0 Pain level now: 0 - Additonal information Additional information: states B flank pain, fever, chills. Started on bactrim recently for UTI. States not improving. Negative covid test. Nothing makes it better or worse. No cough. No congestion. 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, 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 HEENT: None Psych: Post traumatic stress disorder Musculoskeletal: None Derm: None - Past Surgical History Past Surgical History: 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: Tubal ligation - Present Medications Home Medications: Ambulatory Orders Medication Instructions Recorded Confirmed Aspirin 81 mg PO DAILY 05/11/17 03/23/20 Cefdinir 300 mg PO BID #20 capsule 03/23/20 Estrogen Pill 03/23/20 - Allergies Allergies/Adverse Reactions: Allergies Allergy/AdvReac Type Severity Reaction Status Date / Time enoxaparin [From Lovenox] Allergy Unknown Verified 03/23/20 16:46 ketorolac [From Toradol] Allergy Unknown Verified 03/23/20 16:46 tramadol Allergy Hallucinati Verified 03/23/20 16:46 ons warfarin Allergy Unknown Verified 03/23/20 16:46 - Social History Does the pt smoke?: No Smoking Status: Never smoker Does the pt drink ETOH?: No Does the pt have substance abuse?: No - Immunizations Immunizations are current?: Yes - POLST Patient has POLST: No PD ED PE NORMAL - Vitals Vital signs reviewed: Yes - General General: Alert and oriented X 3, No acute distress, Well developed/nourished - HEENT HEENT: Moist mucous membranes - Neck Neck: Supple, no meningeal sign - Cardiac Cardiac: RRR, Strong equal pulses - Respiratory Respiratory: No respiratory distress, Clear bilaterally - Abdomen Abdomen: Soft, Non tender, Non distended - Back Back: No CVA TTP, No spinal TTP - Derm Derm: Warm and dry - Extremities Extremities: No edema - Neuro Neuro: Alert and oriented X 3 - Psych Psych: Normal mood, Normal affect Results - Vitals Vitals: Vital Signs - 24 hr 03/23/20 03/23/20 03/23/20 16:44 18:25 19:02 Temperature 36.6 C Heart Rate 78 67 Respiratory 18 20 Rate Blood Pressure 146/93 H 131/72 H O2 Saturation 98 100 Oxygen O2 Source Room air - Labs Labs: Laboratory Tests 03/23/20 03/23/20 03/23/20 17:58 17:58 18:44 WBC 5.6 RBC 4.79 Hgb 14.4 Hct 42.2 MCV 88.1 MCH 30.1 MCHC 34.1 RDW 12.1 Plt Count 185 MPV 9.8 Neut # (Auto) 3.1 Lymph # (Auto) 1.9 [place] # (Auto) 0.4 Eos # (Auto) 0.1 Baso # (Auto) 0.0 Absolute Nucleated RBC 0.00 Nucleated RBC % 0.0 Sodium 140 Potassium 3.9 Chloride 106 Carbon Dioxide 25 Anion Gap 9.0 BUN 14 Creatinine 0.9 Estimated GFR (MDRD) 67 L Glucose 92 Calcium 9.2 Total Bilirubin 0.7 AST 25 ALT 37 Alkaline Phosphatase 52 Total Protein 7.1 Albumin 4.2 Globulin 2.9 Albumin/Globulin Ratio 1.4 Lipase 38 Urine Color YELLOW Urine Clarity CLEAR Urine pH 6.5 Ur Specific [place] 1.010 Urine Protein NEGATIVE Urine Glucose (UA) NEGATIVE Urine Ketones NEGATIVE Urine Occult Blood NEGATIVE Urine Nitrite NEGATIVE Urine Bilirubin NEGATIVE Urine Urobilinogen 0.2 (NORMAL) Ur Leukocyte Esterase NEGATIVE Ur Microscopic Review NOT INDICATED Urine Culture Comments NOT INDICATED PD MEDICAL DECISION MAKING - ED course Complexity details: reviewed results, re-evaluated patient, considered differ ential, d/w patient ED course: Unclear etiology of the patient symptoms. No significant lab abnormalities. Urinalysis is normal. We will change her to a different antibiotic and see if this relieves her symptoms. Given Rocephin here and will place on cefdinir for home. Patient counseled regarding signs and symptoms for which I believe and urgent re-evaluation would be necessary. Patient with good understanding of and agreement to plan and is comfortable going home at this time This document was made in part using voice recognition software. While efforts are made to proofread this document, sound alike and grammatical errors may occur. Departure - Departure Disposition: Home, Self Care Clinical Impression: UTI (urinary tract infection) Qualifiers: Urinary tract infection type: acute cystitis Hematuria presence: without hematuria Qualified Code(s): N30.00 - Acute cystitis without hematuria Condition: Good Instructions: ED UTI Cystitis Female Follow-Up: Sanya Gaitan MD [Primary Care Provider] - Within 1 week Prescriptions: Cefdinir 300 mg PO BID #20 capsule Comments: The cause of your symptoms is unclear today. You may be having a poor tolerance to the Bactrim that you are taking. We will trial you on cefdinir instead. Your laboratory testing is normal today. Forms: Activity restrictions Discharge Date/Time: 03/23/20 19:19
[2020-03-23 18:07] LABS: BASOPHILS % (AUTO) 0.7 %; EOSINOPHILS # (AUTO) 0.1 10^3/uL (0.0-0.7); HGB - HEMOGLOBIN 14.4 g/dL (12.0-16.0); LYMPHOCYTES # (AUTO) 1.9 10^3/uL (1.5-3.5); LYMPHOCYTES % (AUTO) 34.3 %; MEAN CORPUSCULAR HEMOGLOBIN 30.1 pg (27.0-31.0); MEAN CORPUSCULAR HGB CONC 34.1 g/dL (32.0-36.0); MEAN CORPUSCULAR VOLUME 88.1 fL (81.0-99.0); MEAN PLATELET VOLUME 9.8 fL (7.9-10.8); MONOCYTES # (AUTO) 0.4 10^3/uL (0.0-1.0); MONOCYTES % (AUTO) 6.9 %; NEUTROPHILS # (AUTO) 3.1 10^3/uL (1.5-6.6); NEUTROPHILS % (AUTO) 55.7 %; PLT - PLATELET COUNT 185 10^3/uL (130-450); RED BLOOD COUNT 4.79 10^6/uL (4.20-5.40); RED CELL DISTRIBUTION WIDTH 12.1 % (12.0-15.0); WHITE BLOOD COUNT 5.6 x10^3/uL (4.8-10.8)
[2020-03-23 18:22] LABS: ALBUMIN 4.2 g/dL (3.2-5.5); ALBUMIN/GLOBULIN RATIO 1.4 (1.0-2.2); BILIRUBIN,TOTAL 0.7 mg/dL (0.2-1.0); CALCIUM 9.2 mg/dL (8.5-10.3); CREATININE 0.9 mg/dL (0.4-1.0); TOTAL PROTEIN 7.1 g/dL (6.7-8.2)
[2020-03-23 18:53] LABS: BILIRUBIN,URINE NEGATIVE (NEGATIVE); GLUCOSE, URINE (UA) NEGATIVE (NEGATIVE); KETONES,URINE (UA) NEGATIVE (NEGATIVE); LEUKOCYTE ESTERASE, URINE NEGATIVE (NEGATIVE); NITRITE,URINE NEGATIVE (NEGATIVE); OCCULT BLOOD,URINE NEGATIVE (NEGATIVE); PH,URINE 6.5 PH (5.0-7.5); PROTEIN,URINE NEGATIVE (NEGATIVE); UROBILINOGEN,URINE 0.2 (NORMAL) E.U./dL (NORMAL)
[2020-03-23 19:01] LABS: CLARITY,URINE CLEAR (CLEAR)
[2020-03-23 19:03] VITALS: BP 131/72
== END 2020-03-23 19:19 | disposition home or self-care (01) ==
LOC: ED 16:23
DX: N30.00 Acute cystitis without hematuria (principal)
CPT/HCPCS: 36415; 80053; 81001; 81003; 83690; 85025; 87086; 96361; 96374; 99284

== ENCOUNTER 2020-06-26 19:37 | Outpatient (CLI) | payer OTHER ==
--- OUTSIDE RECORDS SUMMARY | 2020-07-02 01:21 | EXTERNAL MEDICAL SUMMARY RPT | Continuity of Care Document ---
:1975 Demographics Phone Unavailable Preferred Language Unknown Marital Status Unknown Anglican Affiliation Unknown Race Unknown Ethnic Group Unknown Author Organization [place] Address [address] [place] [address] Phone Care Team Providers Name Role Phone FACP Unavailable Unavailable Rochier Unavailable Unavailable Allergies date description facility CODEINE [facility] HYDROCODONE [facility] NITROFURANTOIN [facility] VARENICLINE [facility] DIURETIC [facility] SULFAMETHOXAZOLE-TRIMETHOPRIM [facility] Results test status date ordered by attending specimen eb e null F 2020-06-26 LANG.99 BERNARDO [place]GROCK 06-26 19:27:00 11:50:00 facility observation status value reference units lab abnor mal line notes range code [facility] F NEGATIVE unknown See [facility] s eparate report - Report scanned to Patient' s EMR. Testing perform[facility] d [facility] test status date ordered by attending specimen eb e T unknown 2020-06-26 unknown unknown unknown 00:00:00 COVID-19_REFEREN unknown 2020-06-26 unknown unknown unkno wn CE_TEST 00:00:00 _2019NCoV_COVID- unknown 2020-06-26 unknown unknown unkno wn 19_Lab_Test_Resul 00:00:00 t_Text_ facility observation status value reference units lab abnor mal line range code notes [facility] T unknown NEGATIVE unknown COVI unkn own unknown Primary [facility] D-19 [facility] COVID-19_REF unknown NEGATIVE unknown COVI unknown unknown Primary Care ERENCE_TEST D19.R [facility] EF [facility] _2019NCoV_CO unknown NEGATIVE unknown _665 unknown unknown Primary Care VID-19_Lab_Te 997 [facility] st_Result_Tex t_ Social History date description facility [id number]
== END 2020-06-26 19:38 | disposition home or self-care (01) ==
LOC: COV 19:37
PROVIDERS: ATTEND Family Medicine
DX: M79.10 Myalgia, unspecified site (principal); R19.7 Diarrhea, unspecified; Z20.822 Contact with and (suspected) exposure to COVID-19

== ENCOUNTER 2021-02-06 11:59 | Outpatient (CLI) | payer OTHER ==
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
== END 2021-02-06 12:00 | disposition home or self-care (01) ==
LOC: DI.N 11:59
PROVIDERS: ATTEND Chiropractor
DX: S16.1XXA Strain of muscle, fascia and tendon at neck level, initial encounter (principal); S29.012A Strain of muscle and tendon of back wall of thorax, initial encounter; S39.012A Strain of muscle, fascia and tendon of lower back, initial encounter; M50.321 Other cervical disc degeneration at C4-C5 level; M51.36 Other intervertebral disc degeneration, lumbar region

== ENCOUNTER 2021-02-07 08:00 | Outpatient (CLI) | payer OTHER | END 2021-02-07 23:59 | disposition home or self-care (01) | LOC: LAB.N 08:00 | PROVIDERS: ATTEND Physician Assistant Medical | DX: R30.0 Dysuria (principal) | CPT/HCPCS: 87086 ==

== ENCOUNTER 2021-11-27 07:50 | Outpatient (CLI) | payer OTHER ==
[2021-11-27 12:26] LABS: BASOPHILS # (AUTO) 0.1 10^3/uL (0.0-0.1); BASOPHILS % (AUTO) 1.1 %; EOSINOPHILS # (AUTO) 0.1 10^3/uL (0.0-0.7); EOSINOPHILS % (AUTO) 2.2 %; HCT - HEMATOCRIT 46.4 % (37.0-47.0); HGB - HEMOGLOBIN 15.6 g/dL (12.0-16.0); LYMPHOCYTES # (AUTO) 1.6 10^3/uL (1.5-3.5); LYMPHOCYTES % (AUTO) 28.5 %; MEAN CORPUSCULAR HEMOGLOBIN 29.3 pg (27.0-31.0); MEAN CORPUSCULAR HGB CONC 33.6 g/dL (32.0-36.0); MEAN CORPUSCULAR VOLUME 87.1 fL (81.0-99.0); MEAN PLATELET VOLUME 10.4 fL (7.9-10.8); MONOCYTES # (AUTO) 0.4 10^3/uL (0.0-1.0); MONOCYTES % (AUTO) 6.9 %; NEUTROPHILS # (AUTO) 3.4 10^3/uL (1.5-6.6); NEUTROPHILS % (AUTO) 61.1 %; PLT - PLATELET COUNT 231 10^3/uL (130-450); RED BLOOD COUNT 5.33 10^6/uL (4.20-5.40); RED CELL DISTRIBUTION WIDTH 12.7 % (12.0-15.0); WHITE BLOOD COUNT 5.5 x10^3/uL (4.8-10.8)
[2021-11-27 12:54] LABS: ALBUMIN 4.6 g/dL (3.2-5.5); ALBUMIN/GLOBULIN RATIO 1.4 (1.0-2.2); ALKALINE PHOSPHATASE 60 IU/L (42-121); ALT ALANINE AMINOTRANSFERASE 41 IU/L (10-60); AST ASPARTATE AMINOTRANSFERASE 23 IU/L (10-42); BILIRUBIN,TOTAL 0.7 mg/dL (0.2-1.0); BUN - BLOOD UREA NITROGEN 12 mg/dL (6-20); CALCIUM 9.7 mg/dL (8.5-10.3); CARBON DIOXIDE - CO2 28 mmol/L (21-32); CHLORIDE 105 mmol/L (101-111); CHOL/HDL RATIO 5.5 (<4.4); CHOLESTEROL 238 mg/dL; CREATININE 0.7 mg/dL (0.4-1.0); GFR - MDRD 89 (>89); GLUCOSE 93 mg/dL (70-100); HDL CHOLESTEROL 43 mg/dL; LDL CHOLESTEROL,CALCULATED 171 mg/dL; POTASSIUM 3.6 mmol/L (3.5-5.0); SODIUM 139 mmol/L (135-145); TRIGLYCERIDES 121 mg/dL; VLDL CHOLESTEROL 24 mg/dL
[2021-11-27 12:57] LABS: ESTIMATED AVERAGE GLUCOSE 97 mg/dL (70-100); THYROID STIMULATING HORMONE 4.42 uIU/mL (0.34-5.60)
== END 2021-11-27 07:51 | disposition home or self-care (01) ==
LOC: LAB.N 07:50
PROVIDERS: ATTEND Nurse Practitioner Family
DX: I10 Essential (primary) hypertension (principal); E78.5 Hyperlipidemia, unspecified; E55.9 Vitamin D deficiency, unspecified; E66.9 Obesity, unspecified
CPT/HCPCS: 36415; 80053; 80061; 82306; 83036; 83721; 84443; 85025

== ENCOUNTER 2022-03-12 09:53 | Outpatient (CLI) | payer OTHER ==
[2022-03-12 12:59] LABS: BASOPHILS % (AUTO) 0.8 %; EOSINOPHILS # (AUTO) 0.1 10^3/uL (0.0-0.7); HGB - HEMOGLOBIN 14.8 g/dL (12.0-16.0); LYMPHOCYTES # (AUTO) 1.7 10^3/uL (1.5-3.5); MEAN CORPUSCULAR HEMOGLOBIN 29.2 pg (27.0-31.0); MEAN CORPUSCULAR HGB CONC 34.4 g/dL (32.0-36.0); MEAN CORPUSCULAR VOLUME 84.8 fL (81.0-99.0); MEAN PLATELET VOLUME 10.2 fL (7.9-10.8); MONOCYTES # (AUTO) 0.3 10^3/uL (0.0-1.0); MONOCYTES % (AUTO) 6.8 %; NEUTROPHILS # (AUTO) 2.8 10^3/uL (1.5-6.6); NEUTROPHILS % (AUTO) 56.2 %; PLT - PLATELET COUNT 203 10^3/uL (130-450); RED BLOOD COUNT 5.07 10^6/uL (4.20-5.40); RED CELL DISTRIBUTION WIDTH 12.3 % (12.0-15.0)
[2022-03-12 13:19] LABS: ALBUMIN 4.6 g/dL (3.2-5.5); ALBUMIN/GLOBULIN RATIO 1.5 (1.0-2.2); ALKALINE PHOSPHATASE 60 IU/L (42-121); ALT ALANINE AMINOTRANSFERASE 53 IU/L (10-60); AST ASPARTATE AMINOTRANSFERASE 28 IU/L (10-42); BILIRUBIN,TOTAL 0.5 mg/dL (0.2-1.0); BUN - BLOOD UREA NITROGEN 11 mg/dL (6-20); CARBON DIOXIDE - CO2 28 mmol/L (21-32); CHLORIDE 105 mmol/L (101-111); CHOL/HDL RATIO 5.6 (<4.4); CHOLESTEROL 236 mg/dL; CREATININE 0.8 mg/dL (0.4-1.0); GFR - MDRD 77 (>89); GLUCOSE 93 mg/dL (70-100); HDL CHOLESTEROL 42 mg/dL; LDL CHOLESTEROL,CALCULATED 148 mg/dL; LDL/HDL RATIO 3.5 (<4.4); POTASSIUM 4.1 mmol/L (3.5-5.0); SODIUM 140 mmol/L (135-145); TOTAL PROTEIN 7.6 g/dL (6.7-8.2); TRIGLYCERIDES 231 mg/dL; VLDL CHOLESTEROL 46 mg/dL
[2022-03-12 13:28] LABS: THYROID STIMULATING HORMONE 3.21 uIU/mL (0.34-5.60)
[2022-03-12 13:29] LABS: FREE T3 3.32 pg/mL (2.5-3.9)
[2022-03-12 13:30] LABS: FREE T4 (FREE THYROXINE) 0.65 ng/dL (0.58-1.64)
== END 2022-03-12 09:54 | disposition home or self-care (01) ==
LOC: LAB.N 09:53
PROVIDERS: ATTEND Nurse Practitioner Family
DX: E78.5 Hyperlipidemia, unspecified (principal); L65.9 Nonscarring hair loss, unspecified; R53.83 Other fatigue; R53.81 Other malaise; Z79.899 Other long term (current) drug therapy
CPT/HCPCS: 36415; 80053; 80061; 83721; 84439; 84443; 84481; 85025

== ENCOUNTER 2022-03-12 11:34 | Outpatient (CLI) | payer OTHER ==
--- NOTE | 2022-03-12 16:56 | Ultrasound Report ---
PROCEDURE: Head or Neck Soft Tissue INDICATIONS: ENLARGED THYROID TECHNIQUE: Real-time scanning was performed of the thyroid gland, with image documentation. COMPARISON: None FINDINGS: Right: Thyroid lobe measures 1.3 x 2.1 x 4.9 cm, and is homogeneous in echotexture. Left: Thyroid lobe measures 1.3 x 1.4 x 3.8 cm, and demonstrates a nodule superiorly Isthmus: 3 mm thick. Nodule number: One Location: Left superior thyroid Size: 0.4 x 0.4 x 0.3 cm. Composition: Solid Echogenicity: Hyperechoic Shape: wider than tall. Margins: Ill-defined Echogenic foci: None Total points: 3 ACR TI-RADS category: 3 Recommendations: No follow-up necessary based on size. IMPRESSION: Left thyroid nodule as described above. Otherwise negative examination. Reviewed by: Allan Luo MD on 03/12/2022 4:54 PM PDT Approved by: Allan Luo MD on 03/12/2022 4:54 PM PDT Station ID: [id number]
== END 2022-03-12 11:35 | disposition home or self-care (01) ==
LOC: DI 11:34
PROVIDERS: ATTEND Nurse Practitioner Family
DX: E04.1 Nontoxic single thyroid nodule (principal); E78.5 Hyperlipidemia, unspecified; L65.9 Nonscarring hair loss, unspecified; R53.83 Other fatigue; R53.81 Other malaise; Z79.899 Other long term (current) drug therapy
CPT/HCPCS: 36415; 80053; 80061; 83721; 84439; 84443; 84481; 85025

== ENCOUNTER 2022-05-01 21:50 | Emergency (ER) | payer OTHER ==
--- OUTSIDE RECORDS SUMMARY | 2022-05-01 21:59 | EXTERNAL MEDICAL SUMMARY RPT | Continuity of Care Document ---
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 radiographic (units (u nknown) date) studies including an unknown) MRI of her cervical thoracic and lumbar (unknown) (no (unknown) (unknown) read the note (units ( unknown) date) carefully and unknown) recognize, using context, where these substitutions (unknown) (no (unknown) (unknown) recommend her (units ( unknown) date) worksite be further unknown) evaluated for monitor height she does report (unknown) (no (unknown) (unknown) scanned levels.? (units (unknown) date) unknown) (unknown) (no (unknown) (unknown) score 4-6) #60 caps (unit s (unknown) date) 02/01/22 [Rx unknown) Confirmed 02/01/22] (unknown) (no (unknown) (unknown) she has and (units (un known) date) evaluation this unknown) Tuesday at home. (unknown) (no (unknown) (unknown) small central (units ( unknown) date) protrusion.? Mild unknown) facet and ligamentum flavum hypertrophy.? Mild (unknown) (no (unknown) (unknown) small central (units ( unknown) date) protrusion.? Mild unknown) facet and uncovertebral hypertrophy (unknown) (no (unknown) (unknown) software. Although (units (unknown) date) every effort is made unknown) to edit content, container washer errors m (unknown) (no (unknown) (unknown) spine.? She does (units (unknown) date) report she finds unknown) some good relief of her symptomatology with (unknown) (no (unknown) (unknown) stenosis. (units (unkn own) date) unknown) (unknown) (no (unknown) (unknown) stenosis.? Mild to (units (unknown) date) moderate bilateral unknown) foraminal stenosis. (unknown) (no (unknown) (unknown) superimposed (units (u nknown) date) unknown) (unknown) (no (unknown) (unknown) the lumbar spine (units (unknown) date) are recommended for unknown) confirmation, prior to any lumbar spinal (unknown) (no (unknown) (unknown) the previously (units (unknown) date) identified cervical unknown) ASHA performed on 10/27/2021. She continues (unknown) (no (unknown) (unknown) to work with (units (u nknown) date) physical therapy at unknown) [facility] in [place] as well as (unknown) (no (unknown) (unknown) tramadol [TRAMADOL] (unit s (unknown) date) Adverse Reaction unknown) (Unknown, Unverified 04/12/22 10:01) (unknown) (no (unknown) (unknown) uncovertebral (units ( unknown) date) hypertrophy unknown) bilaterally.? Mild canal stenosis.? Mild right and (unknown) (no (unknown) (unknown) with neck pain and (units (unknown) date) right upper unknown) extremity paresthesias and weakness.? She was (unknown) (no (unknown) (unknown) with the (units (unkno wn) date) above-stated plan. unknown) (unknown) (no (unknown) (unknown) without cough fever (unit s (unknown) date) fatigue at this unknown) time. Social History date description facility +0000 Never smoked tobacco (finding) [facility] Vital Signs date measurement value units [id number]+0000 BMI BMI 37.9 kg/m2 [id number]+0000 BP_diastolic BP_diastolic 78 mmHg [id number]+0000 BP_systolic BP_systolic 134 mmHg [id number]+0000 heart_rate heart_rate 68 /min [id number]+0000 height_metric height_metric 162.56 cm [id number]+0000 height_standard height_standard 64 in [id number]+0000 temperature_metric temperature_metric 37 C [id number]+0000 temperature_standard temperature_standard 9 8.6 F [id number]+0000 weight_metric weight_metric 100.244 g_ code [id number]+0000 weight_standard weight_standard 100.244 g_code
[2022-05-01 22:02] VITALS: BP 154/111
[2022-05-01] MEDS ORDERED: KETOROLAC 30 MG/ML VIAL IM STA (23:25)
[2022-05-01] MEDS ORDERED: NORTRIPTYLINE 25 MG CAPSULE PO STA (23:26)
[2022-05-01] MEDS ORDERED: hydrOXYzine PAMOATE 25 MG CAPSULE PO STA (23:33)
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
== END 2022-05-01 23:46 | disposition home or self-care (01) ==
LOC: ED 21:50
DX: M54.2 Cervicalgia (principal); G89.29 Other chronic pain; Z76.0 Encounter for issue of repeat prescription
CPT/HCPCS: 99282; A9270

== ENCOUNTER 2022-05-21 16:20 | Outpatient (CLI) | payer OTHER ==
[2022-05-21 21:13] LABS: ALBUMIN 4.4 g/dL (3.2-5.5); ALBUMIN/GLOBULIN RATIO 1.5 (1.0-2.2); BILIRUBIN,TOTAL 0.4 mg/dL (0.2-1.0); CALCIUM 9.6 mg/dL (8.5-10.3); CREATININE 0.9 mg/dL (0.4-1.0); TOTAL PROTEIN 7.4 g/dL (6.7-8.2)
== END 2022-05-21 16:21 | disposition home or self-care (01) ==
LOC: LAB.N 16:20
PROVIDERS: ATTEND Physician Assistant
DX: M79.10 Myalgia, unspecified site (principal); Z51.81 Encounter for therapeutic drug level monitoring
CPT/HCPCS: 36415; 80053; 82550

== ENCOUNTER 2022-05-24 20:27 | Outpatient (CLI) | payer OTHER ==
--- NOTE | 2022-05-25 12:19 | Ultrasound Report ---
PROCEDURE: Duplex Ext Veins Left INDICATIONS: LEFT GROIN PAIN TECHNIQUE: Real-time imaging, as well as color and pulse Doppler interrogation, were performed of the lower extr emity deep veins from the inguinal ligament to the popliteal fossa. COMPARISON: None. FINDINGS: The deep veins are normally compressible, and free of intraluminal thrombus. Color and pu lse Doppler demonstrate normal phasic intraluminal flow. There is normal augmentation response to di stal compression maneuver. IMPRESSION: No sonographic evidence of DVT. Reviewed by: Jeffery Brothers MD on 05/25/2022 11:18 AM [facility] Approved by: Jeffery Brothers MD on 05/25/2022 11:18 AM [facility] Station ID: [id number]
--- NOTE | 2022-05-25 13:24 | XRAY Report ---
PROCEDURE: Hips 2V BILAT INDICATIONS: LEFT GROIN PAIN, HIP PAIN, LEFT TECHNIQUE: 2 views of bilateral hips were acquired. COMPARISON: None FINDINGS: Bones: No fractures or dislocations. No suspicious bony lesions. The visualized pelvic ring appear s intact. Soft tissues: No suspicious soft tissue calcifications or masses. IMPRESSION: Normal hip joints bilaterally without significant degeneration or congenital abnormality. Reviewed by: Makenzie White MD on 05/25/2022 1:23 PM PST Approved by: Makenzie White MD on 05/25/2022 1:23 PM PST Station ID: [id number]
== END 2022-05-24 20:28 | disposition home or self-care (01) ==
LOC: DI 20:27
PROVIDERS: ATTEND Physician Assistant
DX: R10.32 Left lower quadrant pain (principal); M25.552 Pain in left hip

== ENCOUNTER 2022-08-05 13:02 | Outpatient (CLI) | payer OTHER ==
--- NOTE | 2022-08-06 12:16 | Mammography Report ---
BILATERAL DIGITAL SCREENING MAMMOGRAM 3D/2D: 08/05/2022 CLINICAL: Baseline exam. Routine screening. No prior exams were available for comparison. Both breasts are heterogeneously dense, which may obscure small masses (category c / 51-75% glandular tissue). There is a low density focal asymmetry in the left breast central to the nipple middle depth. No other significant masses, calcifications, or other findings are seen in either breast. IMPRESSION: INCOMPLETE: NEEDS ADDITIONAL IMAGING EVALUATION The low density focal asymmetry in the left breast is indeterminate. Additional views with possible ultrasound are recommended. Based on the Tyrer Cuzick model (a risk assessment model) the patients lifetime risk is 13.5% and he r 10 year risk is 2.9%. According to the ACR, ACS, and NCCN guidelines, an annual breast MRI exam anali ng with mammogram is recommended if the patients lifetime risk is 20% or greater. This exam was interpreted at Station ID: [id number]. NOTE: For mammograms, a report in lay terms will be sent to the patient. Approximately 15% of breast malignancies will not be visualized mammographically. In the management of a palpable breast mass, a negative mammogram must not discourage biopsy of a clinically suspicious lesion. Electronically Signed By: Jeffery Brothers M.D., jr/marysol:08/05/2022 14:07:56 ACR BI-RADS Category 0: Incomplete 3340F PARENCHYMAL PATTERN: (D) - The breast(s) demonstrate(s) heterogeneously dense fibroglandular parenchy ma. BI-RADS CATEGORY: (0) - 0 Mammo and [place] [id number] Immediate follow-up LATERALITY: (B)
== END 2022-08-05 13:03 | disposition home or self-care (01) ==
LOC: DI.N 13:02
PROVIDERS: ATTEND Nurse Practitioner Family
DX: Z12.31 Encounter for screening mammogram for malignant neoplasm of breast (principal); R92.8 Other abnormal and inconclusive findings on diagnostic imaging of breast

== ENCOUNTER 2022-08-06 08:41 | Outpatient (CLI) | payer OTHER ==
[2022-08-06 12:30] LABS: ALBUMIN 4.2 g/dL (3.2-5.5); ALBUMIN/GLOBULIN RATIO 1.2 (1.0-2.2); ALKALINE PHOSPHATASE 76 IU/L (42-121); ALT ALANINE AMINOTRANSFERASE 35 IU/L (10-60); AST ASPARTATE AMINOTRANSFERASE 21 IU/L (10-42); BILIRUBIN,TOTAL 0.8 mg/dL (0.2-1.0); BUN - BLOOD UREA NITROGEN 14 mg/dL (6-20); CALCIUM 9.2 mg/dL (8.5-10.3); CARBON DIOXIDE - CO2 28 mmol/L (21-32); CHLORIDE 100 mmol/L (101-111); CHOLESTEROL 260 mg/dL; CREATININE 0.8 mg/dL (0.4-1.0); GFR - MDRD 77 (>89); GLUCOSE 88 mg/dL (70-100); HDL CHOLESTEROL 43 mg/dL; LDL CHOLESTEROL,CALCULATED 180 mg/dL; LDL/HDL RATIO 4.2 (<4.4); POTASSIUM 3.4 mmol/L (3.5-5.0); SODIUM 137 mmol/L (135-145); TOTAL PROTEIN 7.6 g/dL (6.7-8.2); TRIGLYCERIDES 186 mg/dL; VLDL CHOLESTEROL 37 mg/dL
[2022-08-06 12:38] LABS: THYROID STIMULATING HORMONE 3.47 uIU/mL (0.34-5.60)
[2022-08-06 12:48] LABS: ESTIMATED AVERAGE GLUCOSE 105 mg/dL (70-100); HEMOGLOBIN A1c% 5.3 % (4.27-6.07)
== END 2022-08-06 08:42 | disposition home or self-care (01) ==
LOC: LAB.N 08:41
PROVIDERS: ATTEND Nurse Practitioner Family
DX: I10 Essential (primary) hypertension (principal); E78.5 Hyperlipidemia, unspecified; E66.9 Obesity, unspecified
CPT/HCPCS: 36415; 80053; 80061; 83036; 83721; 84443

== ENCOUNTER 2022-08-26 07:32 | Outpatient (CLI) | payer OTHER ==
--- NOTE | 2022-08-27 11:39 | Mammography Report ---
UNILATERAL LEFT DIGITAL DIAGNOSTIC MAMMOGRAM 3D/2D: 08/26/2022 CLINICAL: Patient returns today to evaluate a focal asymmetry in the left breast. Comparison is made to exam dated: 08/05/2022 mammogram - [facility]. The left breast is heterogeneously dense, which may obscure small masses (category c / 51-75% glandul ar tissue). There is a focal asymmetry with an obscured and circumscribed margin in the left breast central to th e nipple middle depth. No other significant masses or calcifications are seen in the breast. IMPRESSION: INCOMPLETE: NEEDS ADDITIONAL IMAGING EVALUATION The focal asymmetry in the left breast is indeterminate. A targeted ultrasound is recommended and will immediately follow. Based on the Tyrer Cuzick model (a risk assessment model) the patients lifetime risk is 13.5% and he r 10 year risk is 2.9%. According to the ACR, ACS, and NCCN guidelines, an annual breast MRI exam anali ng with mammogram is recommended if the patients lifetime risk is 20% or greater. This exam was interpreted at Station ID: [id number]. NOTE: For mammograms, a report in lay terms will be sent to the patient. Approximately 15% of breast malignancies will not be visualized mammographically. In the management of a palpable breast mass, a negative mammogram must not discourage biopsy of a clinically suspicious lesion. Electronically Signed By: Trevon Jarquin M.D. slc/:08/26/2022 08:11:05 ACR BI-RADS Category 0: Incomplete 3340F PARENCHYMAL PATTERN: (D) - The breast(s) demonstrate(s) heterogeneously dense fibroglandular yvrose goldman. BI-RADS CATEGORY: (0) - 0 Ultrasound [id number] Immediate follow-up LATERALITY: (B)
--- NOTE | 2022-08-27 11:39 | Ultrasound Report ---
LIMITED ULTRASOUND OF LEFT BREAST: 08/26/2022 CLINICAL: Patient returns today to evaluate a focal asymmetry in the left breast. Comparison is made to exams dated: 08/05/2022 mammogram and 08/26/2022 mammogram - [facility]. Color flow and real-time ultrasound of the left breast 6 o'clock region were performed. Griffin scale i mages of the real-time examination were reviewed. There is a 1.7 cm oval cyst in the left breast at 6 o'clock middle depth 5 cm from the nipple. This oval cyst is anechoic. No internal vascularity. This corresponds to the mammographic finding. IMPRESSION: BENIGN There is no sonographic evidence of malignancy. The 1.7 cm oval cyst or duct in the left breast is benign. A 1 year screening mammogram is recommended. Exam findings were conveyed to the patient. This exam was interpreted at Station ID: [id number]. Electronically Signed By: Trevon Jarquin M.D. slc/:08/26/2022 08:58:54 Ultrasound BI-RADS: 2 Benign BI-RADS CATEGORY: (2) - 2 Mammogram [id number] 1 year screening LATERALITY: (B)
== END 2022-08-26 07:33 | disposition home or self-care (01) ==
LOC: DI 07:32
PROVIDERS: ATTEND Family Medicine
DX: R92.8 Other abnormal and inconclusive findings on diagnostic imaging of breast (principal)

== ENCOUNTER 2022-11-02 07:38 | Outpatient (CLI) | payer OTHER ==
[2022-11-02 11:44] LABS: HCT - HEMATOCRIT 44.5 % (37.0-47.0); HGB - HEMOGLOBIN 15.1 g/dL (12.0-16.0); MEAN CORPUSCULAR HEMOGLOBIN 29.2 pg (27.0-31.0); MEAN CORPUSCULAR HGB CONC 33.9 g/dL (32.0-36.0); MEAN CORPUSCULAR VOLUME 85.9 fL (81.0-99.0); MEAN PLATELET VOLUME 10.4 fL (7.9-10.8); RED BLOOD COUNT 5.18 10^6/uL (4.20-5.40); RED CELL DISTRIBUTION WIDTH 12.4 % (12.0-15.0)
[2022-11-02 12:09] LABS: CALCIUM 9.5 mg/dL (8.5-10.3); CREATININE 0.8 mg/dL (0.4-1.0); POTASSIUM 3.6 mmol/L (3.5-5.0)
[2022-11-02 12:27] LABS: CREATININE,URINE 101.9 mg/dL; PROTEIN/CREATININE RATIO,URINE 0.1 (<=0.2)
[2022-11-04 16:08] LABS: ANTINUCLEAR ANTIBODIES IFA Negative (.)
== END 2022-11-02 07:39 | disposition home or self-care (01) ==
LOC: LAB.N 07:38
PROVIDERS: ATTEND Nurse Practitioner Family
DX: R21 Rash and other nonspecific skin eruption (principal)
CPT/HCPCS: 36415; 80048; 81599; 82570; 84156; 85027; 85651; 86038; 86160

== ENCOUNTER 2023-06-09 15:30 | Outpatient (CLI) | payer OTHER ==
[2023-06-09 17:53] LABS: BASOPHILS # (AUTO) 0.1 10^3/uL (0.0-0.1); BASOPHILS % (AUTO) 0.8 %; EOSINOPHILS # (AUTO) 0.2 10^3/uL (0.0-0.7); EOSINOPHILS % (AUTO) 2.4 %; HCT - HEMATOCRIT 45.5 % (37.0-47.0); HGB - HEMOGLOBIN 14.9 g/dL (12.0-16.0); LYMPHOCYTES # (AUTO) 1.7 10^3/uL (1.5-3.5); LYMPHOCYTES % (AUTO) 26.9 %; MEAN CORPUSCULAR HEMOGLOBIN 28.5 pg (27.0-31.0); MEAN CORPUSCULAR HGB CONC 32.7 g/dL (32.0-36.0); MEAN CORPUSCULAR VOLUME 87.2 fL (81.0-99.0); MEAN PLATELET VOLUME 9.8 fL (7.9-10.8); MONOCYTES # (AUTO) 0.5 10^3/uL (0.0-1.0); MONOCYTES % (AUTO) 8.3 %; NEUTROPHILS # (AUTO) 3.8 10^3/uL (1.5-6.6); NEUTROPHILS % (AUTO) 61.3 %; PLT - PLATELET COUNT 207 10^3/uL (130-450); RED BLOOD COUNT 5.22 10^6/uL (4.20-5.40); RED CELL DISTRIBUTION WIDTH 12.6 % (12.0-15.0); WHITE BLOOD COUNT 6.1 x10^3/uL (4.8-10.8)
[2023-06-09 18:03] LABS: ALBUMIN 4.4 g/dL (3.2-5.5); ALBUMIN/GLOBULIN RATIO 1.8 (1.0-2.2); BILIRUBIN,TOTAL 0.3 mg/dL (0.2-1.0); CALCIUM 9.7 mg/dL (8.5-10.3); POTASSIUM 4.3 mmol/L (3.5-4.5); TOTAL PROTEIN 6.9 g/dL (6.4-8.9)
[2023-06-09 18:18] LABS: THYROID STIMULATING HORMONE 1.68 uIU/mL (0.34-5.60)
== END 2023-06-09 15:45 | disposition home or self-care (01) ==
LOC: LAB.N 15:30
PROVIDERS: ATTEND Specialist
DX: R53.83 Other fatigue (principal)
CPT/HCPCS: 36415; 80053; 84436; 84443; 84480; 85025

== ENCOUNTER 2023-06-25 16:58 | Emergency (ER) | payer OTHER ==
--- NOTE | 2023-06-25 18:12 | XRAY Report ---
PROCEDURE: Chest 2V INDICATIONS: Cough TECHNIQUE: 2 views of the chest were acquired. COMPARISON: None. FINDINGS: Surgical changes and devices: None. Lungs and pleura: No pleural effusions or pneumothorax. Lungs are clear. Mediastinum: Mediastinal contours appear normal. Heart size is normal. Bones and chest wall: No suspicious bony lesions. Overlying soft tissues appear unremarkable. IMPRESSION: No acute cardiopulmonary process. No focal infiltrates are seen. Reviewed by: Madan Beckett MD on 06/25/2023 5:10 PM [facility] Approved by: Madan Beckett MD on 06/25/2023 5:10 PM [facility] Station ID: [id number]
[2023-06-25 18:37] LABS: B. PARAPERTUSSIS- RESP PCR PAN NOT DETECTED; B. PERTUSSIS- RESP PCR PANEL NOT DETECTED; C. PNEUMONIAE- RESP PCR PANEL NOT DETECTED; CORONAVIRUS 229E-RESP PCR NOT DETECTED; CORONAVIRUS HKU1-RESP PCR NOT DETECTED; CORONAVIRUS NL63-RESP PCR NOT DETECTED; CORONAVIRUS OC43-RESP PCR NOT DETECTED; HUMAN METAPNEUMOVIRUS NOT DETECTED; INFLUENZA A- RESP PCR PANEL NOT DETECTED; INFLUENZA B - RESP PCR PANEL NOT DETECTED; M. PNEUMONIAE- RESP PCR PANEL NOT DETECTED; PARAINFLUENZA VIRUS 1 NOT DETECTED; PARAINFLUENZA VIRUS 2 NOT DETECTED; PARAINFLUENZA VIRUS 3 NOT DETECTED; PARAINFLUENZA VIRUS 4 NOT DETECTED; RHINOVIRUS/ENTEROVIRUS NOT DETECTED; RSV- RESP PCR PANEL NOT DETECTED; SARS-CoV-2 -RESP PCR PANEL NOT DETECTED
[2023-06-25] MEDS ORDERED: predniSONE 20 MG TABLET PO STA (20:50)
--- NOTE | 2023-06-25 20:52 | ED Physician Documentation ---
PD HPI URI - Stated complaint Stated Complaint: HEADACHE/CONGESTION - Chief complaint Chief Complaint: Resp - History obtained from History obtained from: Patient - Additional information Additional information: Patient is a 47-year-old female with a history of asthma presenting for evaluation of cough, congestion, low-grade fevers since Tuesday. She reports other family member has tested positive for RSV. She has been using her inhaler more for the past few days. Her cough is sometimes productive of clear to yellow phlegm. No blood in phlegm. She does report feeling some tightness in her chest with coughing. The inhaler does help with her cough and breathing. No recent travel or immobilization. 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 - Present Medications Home Medications: Ambulatory Orders Medication Instructions Recorded Confirmed Nortriptyline [Pamelor] 25 mg ORAL DAILY 05/01/22 05/01/22 Nortriptyline [Pamelor] 25 mg PO HS PRN #15 cap 05/01/22 Nortriptyline [Pamelor] 50 mg PO HS 05/01/22 05/01/22 Nortriptyline [Pamelor] 50 mg PO QPM PRN #15 tab 05/01/22 hydrOXYzine HCL [Hydroxyzine HCl] 25 mg PO QDDINNER PRN #15 tablet 05/01/22 hydrOXYzine HCL [Hydroxyzine HCl] 25 mg PO QPM 05/01/22 05/01/22 predniSONE [Deltasone] 40 mg PO DAILY 4 Days #8 tablet 06/25/23 - Allergies Allergies/Adverse Reactions: Allergies Allergy/AdvReac Type Severity Reaction Status Date / Time enoxaparin [From Lovenox] Allergy Unknown Verified 05/01/22 21:59 ketorolac [From Toradol] Allergy Unknown Verified 05/01/22 21:59 tramadol Allergy Hallucinati Verified 05/01/22 21:59 ons warfarin Allergy Unknown Verified 05/01/22 21:59 - Social History Does the pt smoke?: No Smoking Status: Never smoker Does the pt drink ETOH?: No Does the pt have substance abuse?: No - Immunizations Immunizations are current?: Yes - POLST Patient has POLST: No PD ED PE NORMAL - General General: Alert and oriented X 3, No acute distress, Well developed/nourished - HEENT HEENT: Atraumatic, Moist mucous membranes, Pharynx benign - Neck Neck: Supple, no meningeal sign - Cardiac Cardiac: RRR, No murmur - Respiratory Respiratory: No respiratory distress, Clear bilaterally - Derm Derm: Warm and dry - Extremities Extremities: No edema - Neuro Neuro: Normal speech Results - Vitals Vitals: Vital Signs - 24 hr 06/25/23 06/25/23 17:36 21:17 Temperature 36.4 C L Heart Rate 88 96 Respiratory 15 15 Rate Blood Pressure 123/79 131/70 H O2 Saturation 99 97 Oxygen O2 Source Room air - Labs Labs: Laboratory Tests 06/25/23 17:42 Nasal Adenovirus (PCR) NOT DETECTED Nasal B. parapertussis DNA (PCR) NOT DETECTED Nasal Coronavir 229E PCR NOT DETECTED Nasal Coronavir HKU1 PCR NOT DETECTED Nasal Coronavir NL63 PCR NOT DETECTED Nasal Coronavir OC43 PCR NOT DETECTED Nasal Enterovir/Rhinovir PCR NOT DETECTED Nasal Influenza B PCR NOT DETECTED Nasal Influenza A PCR NOT DETECTED Nasal Parainfluen 1 PCR NOT DETECTED Nasal Parainfluen 2 PCR NOT DETECTED Nasal Parainfluen 3 PCR NOT DETECTED Nasal Parainfluen 4 PCR NOT DETECTED Nasal RSV (PCR) NOT DETECTED Nasal B.pertussis DNA PCR NOT DETECTED Nasal C.pneumoniae (PCR) NOT DETECTED Josiah Human Metapneumo PCR NOT DETECTED Nasal M.pneumoniae (PCR) NOT DETECTED Nasal SARS-CoV-2 (PCR) NOT DETECTED PD Medical Decision Making - ED course Complexity details: reviewed results, re-evaluated patient, d/w patient ED course: Pt with URI symptoms, history of asthma. No wheezing here. VSS. Chest XR negative for pneumonia. Respiratory swab negative but symptoms appear likely viral in nature. Discussed trial of prednisone given more frequent use of inhaler which she is agreeable to. pt counseled on concerning symptoms to return for. Departure - Departure Disposition: 01 Home, Self Care Clinical Impression: Upper respiratory infection Condition: Stable Instructions: ED Viral Syndrome Prescriptions: predniSONE [Deltasone] 40 mg PO DAILY 4 Days #8 tablet Comments: Your chest x-ray does not show signs of pneumonia. Your respiratory swab is negative for the tested viruses which includes COVID, RSV and influenza. At this time I do not feel that there are signs of a bacterial infection where antibiotics would be helpful. Your symptoms are likely related to a virus. However your asthma appears to be flaring up and I will start you on a course of prednisone to help with your asthma symptoms. I sent this prescription to [facility] in [place]. Please return to the emergency department with any worsening symptoms such as labored breathing, vomiting, chest pain or any other concerns. Forms: PCP List Discharge Date/Time: 06/25/23 21:17
[2023-06-25 21:19] VITALS: BP 131/70; O2SAT 97
== END 2023-06-25 21:17 | disposition home or self-care (01) ==
LOC: ED 16:58
DX: J06.9 Acute upper respiratory infection, unspecified (principal)
CPT/HCPCS: 71046; 87633; 99283; 99284; J7512